=== PATIENT | female | born 1950 | race Caucasian/White ===

== ENCOUNTER 2020-08-07 08:25 | Outpatient (REF) | payer MEDICARE, SELFPAY ==
--- NOTE | 2020-08-08 11:04 | MHC.AU.P13 ---
Adult Audiological Evaluation Date of Visit: 08/07/20 Reason for Appointment: Audiological re-evaluation to monitor the status of Ms. Leo's hearing loss. She denies any significant changes to her hearing or medical history. Previous Hearing Test Results: [facility], 01/23/19- Mild to moderately severe mixed hearing loss in the right ear, normal sloping to moderate sensorineural hearing loss in the left ear. 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 Model: Care [employer] M50-R Serial Number: [id number] Battery Size: Rechargeable Repair Warranty: 06/26/2022 Loss and Damage Warranty: 06/26/2022 Dispensed By: [facility] Date of Fittin04/06/2019 Hearing Instrument History- Left Ear: Communication 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 Model: Care [employer] M50-R Serial Number: [id number] Battery Size: Rechargeable Warranty: 06/26/2022 Loss and Damage Warranty: 06/26/2022 Dispensed By: [facility] Date of Fittin04/06/2019 Otoscopy: Right Ear: Unremarkable Left Ear: Unremarkable Tympanometry: Tympanometry performed due to: History of mixed hearing loss Right Ear: Hypercompliant Middle Ear System (Type Ad) Left Ear: Normal Middle Ear System (Type A) Hearing Evaluation: Transducer(s) Used: Insert Earphones, Bone Conduction Method: Conventional Audiometry Stimuli Used: Pure Tones Right Ear: Description of Hearing: Mild sloping to moderately severe mixed hearing loss from 250-8000 Hz. Left Ear: Description of Hearing: Normal hearing from 250-1000 Hz, sloping to a mild to moderate sensorineural hearing loss from 0340-2236 Hz. Speech Recognition Threshold (SRT): Method Used: Monitored Live Voice Stimuli Used: Spondee Words Right Ear: 45 dBHL Left Ear: 15 dBHL Word Discrimination: Method: Recorded Lists Word Lists Used: NU-6 Right Ear: 96% at 85 dBHL Left Ear: 96% at 55 dBHL Comparison: Compared to the most recent evaluation: Hearing is stable. Recommendations: Audiological re-evaluation in one year. Hearing aid maintenance performed today. Diagnosis: Primary Diagnosis: H90.3 Bilateral Sensorineural Hearing Loss Services Performed: Comprehensive Audiological Evaluation (CPT 26436) Tympanometry (CPT 72761) Signature: Provider: Carly Veliz, REINALDO-A
== END 2020-08-07 08:26 | disposition home or self-care (01) ==
LOC: HO.SH 08:25
PROVIDERS: Visit Provider Internal Medicine
DX: H90.3 Sensorineural hearing loss, bilateral (principal)
CPT/HCPCS: 92557; 92567

== ENCOUNTER 2021-01-22 06:06 | Outpatient (REF) | payer MEDICARE, SELFPAY ==
[2021-01-22 11:10] LABS: MANUAL DIFF FLAG NO
[2021-01-22 11:21] LABS: Basophils Percent Auto 0.7 % (0-2); Eosinophils Absolute Auto 0.1 X10*3/uL (0.0-0.4); Eosinophils Percent Auto 2.1 % (0-4); Hematocrit 42.6 % (37-47); Hemoglobin 14.1 g/dl (12.0-16.0); Imm Gran Abs Auto 0.01 X10*3/uL (0.00-0.03); Imm Gran Pct Auto 0.2 % (0.0-0.4); Lymphocytes Absolute Auto 1.9 X10*3/uL (1.2-4.9); Lymphocytes Percent Auto 34.1 % (20-40); Mean Corpuscular HGB Conc 33.1 g/dl (31.0-35.0); Mean Corpuscular Hemoglobin 30.5 pg (27.0-33.0); Mean Corpuscular Volume 92.2 fL (80-98); Monocytes Absolute Auto 0.8 X10*3/uL (0.1-1.2); Monocytes Percent Auto 13.6 % (2-11); Neutrophils Absolute Auto 2.8 X10*3/uL (2.0-8.3); Neutrophils Percent Auto 49.3 % (45-73); Platelet Count 232 X10*3/uL (160-400); Red Blood Count 4.62 X10*6/uL (4.20-5.50); Red Cell Distribution Width 12.5 % (11.0-16.0); White Blood Count 5.7 X10*3/uL (4.8-10.8)
[2021-01-22 11:47] LABS: Alanine Aminotransferase 12 U/L (0-31); Albumin Level 4.1 g/dL (3.5-5.0); Alkaline Phosphatase 93 U/L (39-117); Anion Gap 12 (12-20); Aspartate Amino Transferase 18 U/L (5-31); Blood Urea Nitrogen 13 mg/dL (9-16); Calcium 9.3 mg/dL (8.4-10.2); Carbon Dioxide 28 mmol/L (22-29); Chloride 101 mmol/L (96-108); Cholesterol 170 mg/dL; Estimated Glomerular Filt Rate > 60; Glucose Fasting 98 mg/dL (60-99); HDL Cholesterol 60 mg/dL; LDL Cholesterol Calculated 90 mg/dl; Potassium 4.6 mmol/L (3.3-5.1); Sodium 136 mmol/L (135-145); Total Protein 7.1 g/dL (6.5-8.0); Triglycerides 100 mg/dL
[2021-01-22 12:12] LABS: Vitamin D 25-OH Total 46.8 ng/mL (>30)
== END 2021-01-22 06:07 | disposition home or self-care (01) ==
LOC: HO.HMGCLDS 06:06
PROVIDERS: PCP Internal Medicine; Visit Provider Internal Medicine
DX: E78.5 Hyperlipidemia, unspecified (principal); H91.90 Unspecified hearing loss, unspecified ear; I10 Essential (primary) hypertension; E55.9 Vitamin D deficiency, unspecified; M81.0 Age-related osteoporosis without current pathological fracture
CPT/HCPCS: 36415; 80053; 80061; 82306; 84443; 85025

== ENCOUNTER 2022-01-02 08:26 | Outpatient (REF) | payer MEDICARE, SELFPAY ==
--- NOTE | ~2022-01-02 | MM_ITS ---
EXAMINATION: BONE DENSITOMETRY CLINICAL INDICATION: Osteoporosis. COMPARISON: This is the patient's baseline examination. TECHNIQUE: Using a [employer] DXA System (software version: 13.1) manufactured by [employer], dual-energy x-ray absorptiometry was performed of the lumbar spine and left hip. The images are of good technical quality. Summary results are attached. FINDINGS: AP SPINE L1-L2 (excluding L3 and L4): The data of L1-L4 has been changed to exclude the L3 and L4 vertebral bodies, because degenerative changes at these levels may cause overestimation of lumbar spine density. BMD 0.983 g/cm2, Z-score 0.1, T-score -1.5, osteopenia. LEFT FEMUR, NECK: BMD 0.713 g/cm2, Z-score -0.5, T-score -2.3, osteopenia. LEFT FEMUR, TOTAL: BMD 0.822 g/cm2, Z-score 0.1, T-score -1.5, osteopenia. IDENTIFIED RISK FACTORS: Menopause, tobacco use (current smoker). HISTORY OF FRACTURE: None listed. MEDICATIONS: Vitamin D. MM/XR DEXA axial skeleton IMPRESSION: 1. DIAGNOSIS: Osteopenia based on the lowest T-score value of -2.3 in the femoral neck applying World Health Organization criteria. 2. 10-YEAR FRACTURE RISK PREDICTION, FRAX: Major osteoporotic fracture (clinical spine, forearm, hip or shoulder) 16.6%. Hip fracture 6.9%. 3. Treatment Recommendations: NOF guidelines recommend consideration for treatment in postmenopausal women and men age 50 and older presenting with the following: -A hip or vertebral (clinical or morphometric) fracture. -T-score less than or equal to -2.5 at the femoral neck or spine after appropriate evaluation to exclude secondary causes. -Low bone mass at the hip or spine and a 10-year fracture probability by FRAX of greater than or equal to 3% for hip fracture or greater than or equal to 20% for major osteoporotic fracture based on the [place] adapted WHO algorithm. 4. Other Recommendations: All treatment decisions require clinical judgment and consideration of individual patient factors, including patient preferences, comorbidities, previous drug use, risk factors not captured in the FRAX model (e.g. frailty, falls, vitamin D deficiency, increased bone turnover, interval significant decline in bone density) and possible under or overestimation of fracture risk by FRAX. Additional medical evaluation for secondary cause of low bone mineral density may be appropriate. FUTURE SCAN RECOMMENDATION: People with diagnosed cases of osteoporosis or at high risk for fracture should have regular bone mineral density tests. For patients eligible for Medicare, routine testing is allowed once every 2 years. The testing frequency can be increased to one year for patients who have rapidly progressing disease, those who are receiving or discontinuing medical therapy to restore bone mass, or have additional risk factors.
== END 2022-01-02 08:27 | disposition home or self-care (01) ==
LOC: HO.MAMMO 08:26
PROVIDERS: Visit Provider Internal Medicine
DX: M81.0 Age-related osteoporosis without current pathological fracture (principal)
CPT/HCPCS: 77080

== ENCOUNTER 2022-08-01 07:04 | Outpatient (REF) | payer OTHER, SELFPAY ==
[2022-08-01 07:21] LABS: MANUAL DIFF FLAG NO
[2022-08-01 08:06] LABS: Basophils Percent Auto 0.6 % (0-2); Eosinophils Absolute Auto 0.1 X10*3/uL (0.0-0.4); Hemoglobin 13.7 g/dl (12.0-16.0); Imm Gran Abs Auto 0.01 X10*3/uL (0.00-0.03); Imm Gran Pct Auto 0.2 % (0.0-0.4); Lymphocytes Absolute Auto 1.7 X10*3/uL (1.2-4.9); Lymphocytes Percent Auto 26.4 % (20-40); Mean Corpuscular HGB Conc 32.6 g/dl (31.0-35.0); Mean Corpuscular Volume 91.9 fL (80.0-98.0); Mean Platelet Volume 10.4 fL (9.4-12.3); Monocytes Absolute Auto 0.7 X10*3/uL (0.1-1.2); Neutrophils Absolute Auto 3.8 x10*3/uL (2.0-8.3); Neutrophils Percent Auto 59.8 % (45-73); Platelet Count 224 X10*3/uL (160-400); Red Blood Count 4.57 X10*6/uL (4.20-5.50); White Blood Count 6.4 X10*3/uL (4.8-10.8)
[2022-08-01 08:26] LABS: Color Urine Yellow; Glucose Urine UA Negative (Negative); Leukocyte Esterase Urine Trace (Negative); Nitrite Urine Negative (Negative); UMIC TRIGGER UA YES; Urine Blood Trace (Negative); Urine Ketones Trace mg/dL (Negative); Urine Protein Negative (Neg-Trace)
[2022-08-01 08:28] LABS: Bacteria Urine None Seen (None Seen); Hyaline Casts Urine 0-2 /LPF (0-2); RBC Urine 0-2 /HPF (0-2); Squamous Epithelial Cell Urine 0-2 /HPF (0-2); WBC Urine 0-5 /HPF (0-5)
[2022-08-01 08:55] LABS: Appearance Urine Clear
[2022-08-01 09:00] LABS: Alanine Aminotransferase 13 U/L (0-31); Alkaline Phosphatase 117 U/L (39-117); Anion Gap 12 (12-20); Aspartate Amino Transferase 16 U/L (5-31); Bilirubin Total 0.9 mg/dL (0.0-1.0); Blood Urea Nitrogen 13 mg/dL (9-16); Calcium 9.3 mg/dL (8.4-10.2); Carbon Dioxide 27 mmol/L (22-29); Chloride 104 mmol/L (96-108); Cholesterol 157 mg/dL; Estimated Glomerular Filt Rate > 60; Glucose Fasting 95 mg/dL (60-99); HDL Cholesterol 53 mg/dL; LDL Cholesterol Calculated 87 mg/dl; Potassium 4.8 mmol/L (3.3-5.1); Sodium 138 mmol/L (135-145); Total Protein 6.9 g/dL (6.5-8.0); Triglycerides 85 mg/dL
[2022-08-01 09:18] LABS: TSH reflex Free T4 1.18 uIU/mL (0.32-4.0)
== END 2022-08-01 07:05 | disposition home or self-care (01) ==
LOC: HO.LAB 07:04
PROVIDERS: PCP Internal Medicine; Visit Provider Internal Medicine
DX: Z00.00 Encounter for general adult medical examination without abnormal findings (principal); I10 Essential (primary) hypertension; E78.5 Hyperlipidemia, unspecified; E55.9 Vitamin D deficiency, unspecified
CPT/HCPCS: 36415; 80053; 80061; 81001; 82306; 84443; 85025

== ENCOUNTER 2022-08-05 07:43 | Emergency (ER) | payer OTHER, SELFPAY ==
--- NOTE | ~2022-08-05 | CT_ITS ---
EXAMINATION: CT ABDOMEN AND PELVIS WITHOUT CONTRAST CLINICAL INFORMATION: Left flank pain COMPARISON: CT dated 02/17/2018 TECHNIQUE: Multidetector volumetric imaging was performed from the superior aspect of the liver through the pubic symphysis. Sagittal and coronal reformatted images were obtained on the technologist's workstation. This CT examination was performed using dose optimization techniques as appropriate, variously including the following: *Automated exposure control *Adjustment of mA and/or kV according to patient size (this includes techniques or standardized protocols for targeted exams where dose is matched to indication/reason for exam; i.e. extremities or head) *Use of iterative reconstruction technique DLP: 558 mGy-cm FINDINGS: LUNG BASES: Mild atelectasis or chronic change at the left lung base LIVER, GALLBLADDER, AND BILIARY TREE: Mild intrahepatic ductal prominence. Status post cholecystectomy PANCREAS: Unremarkable. SPLEEN: Unremarkable. ADRENAL GLANDS: Mild fullness of the left greater than right adrenal glands. Underlying minimal nodularity cannot be excluded on the left. Negative Hounsfield units argues for benign etiology. KIDNEYS AND URETERS: The kidneys are normal in size, shape, and attenuation. No hydronephrosis, hydroureter, or calculi seen. No perinephric stranding. BLADDER: Unremarkable. GASTROINTESTINAL TRACT: Diverticulosis is noted. No evidence for diverticulitis. The bowel pattern is felt to be nonobstructing. No free fluid. The appendix is normal ABDOMINAL WALL: No significant hernia is appreciated. LYMPH NODES: There is no bulky adenopathy here. VASCULAR: Atherosclerotic changes are noted. PELVIC VISCERA: Unremarkable. OSSEOUS STRUCTURES: No acute finding. Some degenerative changes most noted at L3-4 CT/CT abdomen pelvis wo IV con IMPRESSION: No acute finding. No evidence of renal or ureteral stone or obstruction. Diverticulosis but no evidence for diverticulitis. The bowel pattern is felt to be nonobstructing.
[2022-08-05 07:47] VITALS: BP 174/61; PULSE 65; RESP 18; TEMP 36.6; O2SAT 100; BMI 27.4
--- NOTE | 2022-08-05 08:06 | PC.NURSE ---
72 y/o F pw L flank pain and dysuria, pt with hx of kidney stones inthe past, states that this feels similar. SHANTHI, aox3, awaiting MD
[2022-08-05 08:18] LABS: Hematocrit 41.6 % (37.0-47.0); Hemoglobin 13.7 g/dl (12.0-16.0); Mean Corpuscular HGB Conc 32.9 g/dl (31.0-35.0); Platelet Count 207 X10*3/uL (160-400); Red Blood Count 4.57 X10*6/uL (4.20-5.50); White Blood Count 9.3 X10*3/uL (4.8-10.8)
--- NOTE | 2022-08-05 08:22 | ED_ITS ---
HPI - Female Genitourinary General Chief complaint: Urogenital-Female Stated complaint: L flank pain Time Seen by Provider: 08/05/22 08:01 Source: patient and family Mode of arrival: ambulatory History of Present Illness HPI Narrative: 72-year-old female with history of hypertension, last colonoscopy summer presents with left flank/posterior vague pain that is been ongoing for approximately for 5 days, nonradiating, not associated with fever, chills, nausea, vomiting, dysuria. Patient denies any traumatic event and denies any respiratory symptoms such as cough/cold symptoms. Related Data Home Medications Medication Instructions Recorded Confirmed aspirin 81 mg tablet,delayed 81 mg PO DAILY 07/26/20 07/10/22 release cholecalciferol (vitamin D3) 25 25 mcg PO DAILY 07/26/20 07/10/22 mcg (1,000 unit) capsule flu vacc [id number](65yr up)-PF 240 ml IM 07/26/20 07/10/22 mcg/0.7 mL intramuscular syringe latanoprost 0.005 % eye drops 1 drp ophthalmic (eye) BEDTIME 07/26/20 07/10/22 omeprazole 20 mg capsule,delayed 20 mg PO DAILY 07/26/20 07/10/22 release timolol maleate 0.5 % eye drops 1 drp ophthalmic (eye) BID 07/26/20 07/10/22 Previous Rx's Medication Instructions Recorded erythromycin 5 mg/gram (0.5 %) eye 0.5 inch ophthalmic (eye) BID #1 g 06/20/21 ointment amlodipine 2.5 mg tablet 2.5 mg PO DAILY #90 tabs 02/09/22 rosuvastatin 5 mg tablet 2.5 mg PO DAILY #45 tabs 02/20/22 Allergies Allergy/AdvReac Type Severity Reaction Status Date / Time No Known Allergies Allergy Verified 07/10/22 08:54 [No Known Allergies*] Review of Systems Review of Systems: Pertinent positives and negatives as stated in HPI [facility] Past Medical History Source: nursing notes reviewed Medical History Annual physical exam GERD (gastroesophageal reflux disease) Glaucoma Hearing loss HTN (hypertension) Hyperlipidemia Hyperthyroidism Nephrolithiasis Osteoporosis SVT (supraventricular tachycardia) Vitamin D deficiency Surgical History H/O colonoscopy History of appendectomy Hx of cholecystectomy Family History Family History Father No problems noted. Mother No problems noted. Social History Social History Housing: House Alcohol intake: current Alcohol intake frequency: holidays/special occasions only Patient Tobacco Use Status: Current everyday Tobacco user Cigarettes Per Day: 3 e-Cigarette/Vaping Use: Never Used Advance Directives: Yes Advance Directives on File: No Current occupational status: employed Cognitive needs: No Hearing needs: Yes Vision needs: Yes Physical Exam Vital Signs: Vital Signs: Last Vital Signs Temp 97.8 F 08/05/22 07:47 Pulse 65 08/05/22 07:47 Resp 18 08/05/22 07:47 BP 174/61 H 08/05/22 07:47 Pulse Ox 100 08/05/22 07:47 O2 Del Method 08/05/22 07:47 BMI result Body Mass Index 27.4 VITAL SIGNS: Reviewed. GENERAL: Well developed, well nourished, in no acute distress. HEAD: Normocephalic/atraumatic EYES: PERRLA, EOMI LUNGS: Normal breath sounds. No adventitious sounds or accessory muscle use. SpO2<100> CARDIOVASCULAR: Regular rate and rhythm without noted murmurs ABDOMEN: Soft, non-tender, non-distended with bowel sounds, no CVA tenderness MUSCULOSKELETAL: No tenderness, deformities, or effusions noted on gross inspection. BACK: There is no obvious pain on palpation to the left paraspinal lumbar area EXTREMITIES: No cyanosis, clubbing or edema. SKIN: Inspection of the skin reveals no rashes NEUROLOGIC: Alert and oriented x 3. Strength and sensation to light touch were grossly intact x 4. Medications Administered Discontinued Medications Generic Name Dose Route Start Last Admin Trade Name Freq PRN Reason Stop Dose Admin Acetaminophen 975 mg 08/05/22 08:22 08/05/22 08:40 Acetaminophen 325 Mg Tablet PO 08/05/22 08:23 975 mg ONCE ONE Administration Ibuprofen 400 mg 08/05/22 08:22 08/05/22 08:40 Ibuprofen 400 Mg Tablet PO 08/05/22 08: 400 mg ONCE ONE Administration Lidocaine 1 patch 08/05/22 08:22 08/05/22 08:40 Lidocaine 4 % Patch Adh..Patch TRANSDERMA 08/05/22 08:23 1 patch ONCE ONE Administration Protocol Medical Decision Making Medical Decision Making MDM Narrative: 72-year-old female with left flank/musculoskeletal discomfort. Labs/UA/CT abdomen pelvis. On review of all investigations my interpretation is that patient has musculoskeletal/muscle spasm to the left posterior flank, there is no findings to suggest acute infection, anemia there was noted hematuria on urinalysis but CT scan is without acute findings. All results were discussed with patient at bedside and she did receive combination analgesics with a lidocaine patch and on re-evaluation states she has had improvement of her symptoms. Differential Diagnosis Differential Diagnoses: The differential diagnosis associated with the presentation includes Please see the discussion above Lab Data MDM Lab Attestation statement: I reviewed the patient's lab results. Please see discussion above. 08/05/22 08:10 08/05/22 08:10 Labs: Lab Results 08/05/22 08/05/22 08/05/22 Range/Units 08:10 08:10 08:43 WBC 9.3 (4.8-10.8) X10*3/uL RBC 4.57 (4.20-5.50) X10*6/uL Hgb 13.7 (12.0-16.0) g/dl Hct 41.6 (37.0-47.0) % MCV 91.0 (80.0-98.0) fL MCH 30.0 (27.0-33.0) pg MCHC 32.9 (31.0-35.0) g/dl RDW 13.0 (11.0-16.0) % Plt Count 207 (160-400) X10*3/uL MPV 10.0 (9.4-12.3) fL Absolute Nucleated RBC 0.000 (0.0-0.012) X10*3/uL Nucleated RBC % (auto) 0.0 (0.0-0.2) /100WBC Sodium 139 (135-145) mmol/L Potassium 5.6 H (3.3-5.1) mmol/L Chloride 104 (96-108) mmol/L Carbon Dioxide 26 (22-29) mmol/L Anion Gap 15 (12-20) BUN 15 (9-16) mg/dL Creatinine 0.85 (0.5-1.4) mg/dL Estim Creat Clear Calc 52.4 Estimated GFR > 60 Random Glucose 114 (60-115) mg/dL Calcium 9.5 (8.4-10.2) mg/dL Urine Color Yellow Urine Appearance Clear Urine pH 6.0 (5.0-9.0) Ur Specific [place] 1.010 (1.005-1.025) Urine Protein Negative (Neg-Trace) mg/dL Urine Glucose (UA) Negative (Negative) mg/dL Urine Ketones Negative (Negative) mg/dL Urine Blood Trace H (Negative) Urine Nitrite Negative (Negative) Ur Leukocyte Esterase Negative (Negative) Urine RBC 3-5 H (0-2) /HPF Urine WBC 0-5 (0-5) /HPF Ur Squamous Epith Cells 0-2 (0-2) /HPF Urine Bacteria None Seen (None Seen) Hyaline Casts 0-2 (0-2) /LPF Radiology Impression Radiologist Impression: My interpretation is in agreement with radiology's impression of the imaging study. Chronic Conditions Patient?s care impacted by: Hypertension Discharge Plan Discharge Clinical Impression: HTN (hypertension), Left flank pain Patient Disposition: Home, Self-Care Instructions: Flank Pain (ED), Musculoskeletal Pain (ED), Muscle Spasm (ED) Additional Instructions: 1. Resume all home medications as prescribed. 2. Tylenol 1000 mg, orally, every 6 hours as needed for pain control. Do not exceed 4000 mg within 24 hours. 3. Ibuprofen 400 mg, orally with milk or food, every 6 hours as needed for pain control. I would only use this if the Tylenol and lidocaine patch do not provi de sufficient relief. 4. Recommend [id number] Salonpas, lidocaine patch apply to the area of m aximal tenderness as directed on the outside packaging. 5. Always follow-up with your primary care provider, in the next 1-2 days, for re-evaluation further outpatient management. Return to the ER for any worsening or change in your symptoms. Prescriptions: No Action amlodipine 2.5 mg tablet 2.5 mg PO DAILY Qty: 90 3RF rosuvastatin 5 mg tablet 2.5 mg PO DAILY Qty: 45 3RF latanoprost 0.005 % drops 1 drp ophthalmic (eye) BEDTIME timolol maleate 0.5 % drops 1 drp ophthalmic (eye) BID Fluzone HighDose Quad 20-21 PF 240 mcg/0.7 mL syringe IM aspirin 81 mg tablet,delayed release (DR/EC) 81 mg PO DAILY cholecalciferol (vitamin D3) 25 mcg (1,000 unit) capsule 25 mcg PO DAILY omeprazole 20 mg capsule,delayed release(DR/EC) 20 mg PO DAILY erythromycin 5 mg/gram (0.5 %) ointment 0.5 inch ophthalmic (eye) BID Qty: 1 0RF Referrals: Pastora Sargent MD [Primary Care Provider] - (Patient evaluated for left flank pain, workup was negative, there was a noted elevation of potassium without alternate complaints, would repeat a basic metabolic panel.)
[2022-08-05 08:31] LABS: Anion Gap 15 (12-20); Blood Urea Nitrogen 15 mg/dL (9-16); Calcium 9.5 mg/dL (8.4-10.2); Carbon Dioxide 26 mmol/L (22-29); Chloride 104 mmol/L (96-108); Creatinine Clr Calc Pharmacy 52.4; Estimated Glomerular Filt Rate > 60; Glucose Random 114 mg/dL (60-115); Potassium 5.6 mmol/L (3.3-5.1); Sodium 139 mmol/L (135-145)
[2022-08-05] MEDS: Lidocaine 4 % Patch ADH..PATCH 1 PATCH TRANSDERMA (08:40)
[2022-08-05] MEDS: Acetaminophen 325 MG TABLET 975 MG PO (08:40)
[2022-08-05] MEDS: Ibuprofen 400 MG TABLET PO (08:40)
[2022-08-05 08:52] LABS: Appearance Urine Clear; Color Urine Yellow; Glucose Urine UA Negative (Negative); Leukocyte Esterase Urine Negative (Negative); Nitrite Urine Negative (Negative); UMIC TRIGGER UACC YES; Urine Blood Trace (Negative); Urine Ketones Negative (Negative); Urine Protein Negative (Neg-Trace)
[2022-08-05 08:57] LABS: Bacteria Urine None Seen (None Seen); Hyaline Casts Urine 0-2 /LPF (0-2); Squamous Epithelial Cell Urine 0-2 /HPF (0-2); WBC Urine 0-5 /HPF (0-5)
== END 2022-08-05 12:14 | disposition home or self-care (01) ==
PROVIDERS: Emergency Provider Student in an Organized Health Care Education/Training Program; PCP Internal Medicine
DX: R10.9 Unspecified abdominal pain (principal); I10 Essential (primary) hypertension; F17.210 Nicotine dependence, cigarettes, uncomplicated; Z79.899 Other long term (current) drug therapy; Z71.6 Tobacco abuse counseling
CPT/HCPCS: 36415; 74176; 80048; 81001; 85027; 99284

== ENCOUNTER 2022-09-01 08:15 | Emergency (ER) | payer OTHER, SELFPAY ==
[2022-09-01] VITALS (8 sets, daily range): BP systolic 100–121; BP diastolic 51–82; PULSE 70–90; RESP 14–26; TEMP 36.3–36.9; O2SAT 94–97; BMI 28.5
--- NOTE | ~2022-09-01 | CT_ITS ---
EXAMINATION: CT ANGIOGRAM OF THE CHEST WITH CONTRAST (CT PULMONARY ANGIOGRAM FOR PE) CLINICAL INFORMATION: Chest pain, SOB, COVID+ , evaluate for pulmonary embolism. COMPARISON: Chest radiograph from 09/01/2022. Abdomen CT from 08/05/2022. TECHNIQUE: Prior to contrast administration, noncontrast localization images were obtained. Subsequently, multidetector volumetric imaging was performed from the thoracic inlet to below the diaphragms following the administration of 65 mL Omnipaque 350 intravenous contrast. No contrast reaction reported. Sagittal, coronal, and MIP oblique sagittal reformatted images were obtained on the CT workstation, uploaded to PACS, and reviewed. This CT examination was performed using dose optimization techniques as appropriate, variously including the following: *Automated exposure control *Adjustment of mA and/or kV according to patient size (this includes techniques or standardized protocols for targeted exams where dose is matched to indication/reason for exam; i.e. extremities or head) *Use of iterative reconstruction technique DLP: Total exam dose-length product 269 mGy-cm FINDINGS: LUNGS AND PLEURA: The bronchial davis are diffusely thickened. Also, there is smooth thickening of interlobular septa in both lungs with small pleural effusions and mild bibasilar atelectasis. Small patchy groundglass and airspace opacities in the right upper lobe are nonspecific but probably represent edema rather than pneumonitis. Also, a small airspace opacity in the lateral right lower lobe is new compared to 08/05/2022 (image 336, series 7). QUALITY OF STUDY/CONTRAST BOLUS: Satisfactory. CARDIOVASCULAR: The pulmonary arteries are normal in size. No embolic filling defects within the main, lobar or segmental vessels. Mitral valve annulus is densely calcified. Mild cardiomegaly. Three-vessel coronary artery atherosclerotic calcification. No pericardial effusion. Thoracic aorta atherosclerosis without aneurysm. MEDIASTINUM/LOWER NECK: Thyroid gland and esophagus are unremarkable. No mediastinal mass. LYMPHATICS: No pathologic sized axillary, hilar or mediastinal lymph nodes. UPPER ABDOMEN: Mild reflux of contrast into the inferior vena cava. Gallbladder is surgically absent. Adrenal glands are unremarkable. Diverticula of the partially visualized colon. OSSEOUS STRUCTURES: Bone density is diffusely decreased in this patient with history of osteopenia. No acute compression fractures. Multilevel discovertebral degenerative change of the visualized lower cervical and thoracic spine. CT/CT angio chest PE protocol IMPRESSION: * No evidence of pulmonary embolism. * Mild cardiomegaly, atherosclerotic disease of coronary arteries, pulmonary edema and small pleural effusions. * A few patchy groundglass and airspace opacities are present in the right lung. These are likely related to the pulmonary edema although unable to exclude any superimposed pneumonia.
--- NOTE | ~2022-09-01 | XR_ITS ---
EXAMINATION: XR CHEST CLINICAL INFORMATION: History of pain. COMPARISON: Abdomen CT from 08/05/2022. DEXA imaging from 01/02/2022. TECHNIQUE: Frontal view of the chest was obtained. FINDINGS: Lungs are well expanded. The bronchial davis appear to be diffusely thickened. Linear opacity of mild atelectasis or focal scar in the retrocardiac region of the left lower lobe. No overt airspace disease or pleural effusion. No pneumothorax. Cardiac silhouette is mildly enlarged and mitral valve annulus calcified. There is atherosclerotic calcification of the aorta. The visualized bones are intact. Multiple EKG leads overlie the chest. XR/XR chest 1V IMPRESSION: * Mild cardiomegaly. No evidence of acute congestive heart failure. * The bronchial davis appear to be diffusely thickened. This could represent chronic airway inflammation from cigarette smoking/bronchitis.
--- NOTE | 2022-09-01 08:32 | ECG_ITS ---
Test Reason : chest pain Blood Pressure : / mmHG Vent. Rate : 081 BPM Atrial Rate : 081 BPM P-R Int : 222 ms QRS Dur : 092 ms QT Int : 436 ms P-R-T Axes : 069 -44 090 degrees QTc Int : 506 ms Sinus rhythm with 1st degree A-V block Left axis deviation Incomplete right bundle branch block Septal infarct , age undetermined ST & T wave abnormality, consider lateral ischemia Abnormal ECG No previous ECGs available Referred By: Nathan Watts Electronically Signed By:TOI POST MD
[2022-09-01 08:54] LABS: MANUAL DIFF FLAG NO
[2022-09-01 08:55] LABS: Basophils Percent Auto 0.3 % (0-2); Eosinophils Absolute Auto 0.1 X10*3/uL (0.0-0.4); Eosinophils Percent Auto 0.5 % (0-4); Hematocrit 40.1 % (37.0-47.0); Hemoglobin 13.5 g/dl (12.0-16.0); Imm Gran Abs Auto 0.03 X10*3/uL (0.00-0.03); Imm Gran Pct Auto 0.3 % (0.0-0.4); Lymphocytes Absolute Auto 1.6 X10*3/uL (1.2-4.9); Lymphocytes Percent Auto 16.4 % (20-40); Mean Corpuscular HGB Conc 33.7 g/dl (31.0-35.0); Mean Corpuscular Hemoglobin 29.5 pg (27.0-33.0); Mean Corpuscular Volume 87.7 fL (80.0-98.0); Mean Platelet Volume 9.8 fL (9.4-12.3); Monocytes Absolute Auto 0.9 X10*3/uL (0.1-1.2); Monocytes Percent Auto 9.8 % (2-11); Neutrophils Absolute Auto 6.9 x10*3/uL (2.0-8.3); Neutrophils Percent Auto 72.7 % (45-73); Platelet Count 260 X10*3/uL (160-400); Red Blood Count 4.57 X10*6/uL (4.20-5.50); Red Cell Distribution Width 13.2 % (11.0-16.0); White Blood Count 9.5 X10*3/uL (4.8-10.8)
[2022-09-01 09:05] LABS: Prothrombin Time 11.7 SEC (10.0-13.1)
[2022-09-01 09:08] LABS: Partial Thromboplastin Time 27.9 SEC (26.0-36.4)
[2022-09-01 09:09] LABS: COVID-19 Test Positive (Negative); IDNOW Serial# 16C4AD1C
[2022-09-01 09:13] LABS: Alanine Aminotransferase 20 U/L (0-31); Albumin Level 3.8 g/dL (3.5-5.0); Alkaline Phosphatase 110 U/L (39-117); Anion Gap 15 (12-20); Aspartate Amino Transferase 116 U/L (5-31); Bilirubin Total 0.8 mg/dL (0.0-1.0); Blood Urea Nitrogen 22 mg/dL (9-16); Calcium 8.9 mg/dL (8.4-10.2); Carbon Dioxide 22 mmol/L (22-29); Chloride 102 mmol/L (96-108); Creatinine Clr Calc Pharmacy 58.3; Estimated Glomerular Filt Rate > 60; Glucose Random 119 mg/dL (60-115); Lipase 19 U/L (8-78); Potassium 4.4 mmol/L (3.3-5.1); Sodium 135 mmol/L (135-145); Total Protein 6.8 g/dL (6.5-8.0)
[2022-09-01 09:14] LABS: IDNOW Serial# BCCEAD1C; Influenza A Negative (Negative); Influenza B2 Negative (Negative)
[2022-09-01 09:18] LABS: B Type Natriuretic Peptide 1309 pg/mL (<100)
[2022-09-01] MEDS: ondansetron HCL 4 MG/2 ML VIAL IVPUSH (09:29)
[2022-09-01] MEDS: Morphine Sulfate 4 MG/ML CARTRIDGE IVPUSH (09:29)
[2022-09-01 09:37] LABS: Troponin-I High Sensitivity > 3600.0 ng/L (<3.5-17.0)
--- NOTE | 2022-09-01 09:40 | ED.CHESTPAIN ---
HPI - Chest Pain General Chief Complaint: Chest Pain Stated Complaint: CHEST HEAVY, HARD TIME WITH DEEP BREATHING PER EMS Time Seen by Provider: 09/01/22 08:23 Source: patient Mode of arrival: EMS Limitations: no limitations History of Present Illness HPI narrative: 72-year-old female who presents to the emergency department for evaluation of chest pain, back pain and shortness of breath. The patient states she was diagnosed with COVID-19 approximately 12 days prior. She states she is feeling significantly better but still has a nonproductive cough. The patient states that she has a long flight of stairs that she has to walk up. She states that over the last month when she gets the top of the stairs she feels winded and has chest pain which she describes as a pressure/heaviness in her chest and back. She states that the pain usually resolves after 10 minutes of rest. She states that last night at 22:00 hours she walked to the top of the stairs and developed the pain in her chest and back. States the pain was more severe than usual and was 7/10. The pain was constant and persisted therefore this morning she called an ambulance and was brought to the emergency department for evaluation. At the time of evaluation she was complaining of a heaviness in her chest/breasts and in her back. The pain was 4/10. She states she did get diaphoretic earlier this morning. She states the pain does radiate to her right arm and back as well. She denied nausea, vomiting, lightheadedness or dizziness. She was given 324 mg of aspirin to chew by the paramedics. The patient denied fever, chills, rhinorrhea, sore throat. She states she has a persistent cough since being diagnosed with COVID-19 12 days prior, she denied abdominal pain, frequency, urgency or dysuria. Related Data Home Medications Medication Instructions Recorded Confirmed aspirin 81 mg tablet,delayed 81 mg PO DAILY 07/26/20 07/10/22 release cholecalciferol (vitamin D3) 25 25 mcg PO DAILY 07/26/20 07/10/22 mcg (1,000 unit) capsule flu vacc [id number](65yr up)-PF 240 ml IM 07/26/20 07/10/22 mcg/0.7 mL intramuscular syringe latanoprost 0.005 % eye drops 1 drp ophthalmic (eye) BEDTIME 07/26/20 07/10/22 omeprazole 20 mg capsule,delayed 20 mg PO DAILY 07/26/20 07/10/22 release timolol maleate 0.5 % eye drops 1 drp ophthalmic (eye) BID 07/26/20 07/10/22 Previous Rx's Medication Instructions Recorded erythromycin 5 mg/gram (0.5 %) eye 0.5 inch ophthalmic (eye) BID #1 g 06/20/21 ointment amlodipine 2.5 mg tablet 2.5 mg PO DAILY #90 tabs 02/09/22 rosuvastatin 5 mg tablet 2.5 mg PO DAILY #45 tabs 02/20/22 Allergies Allergy/AdvReac Type Severity Reaction Status Date / Time No Known Allergies Allergy Verified 07/10/22 08:54 [No Known Allergies*] Review of Systems Review of Systems: Yes all other systems are reviewed and are negative [facility] Past Medical History [facility] Narrative: Social history: The patient is a sister of [employer] in lives in a convent. She does smoke 5 cigarettes per day times 40 years. She occasionally drinks alcohol. She denies drug use. Medical History Annual physical exam GERD (gastroesophageal reflux disease) Glaucoma Hearing loss HTN (hypertension) Hyperlipidemia Hyperthyroidism Nephrolithiasis Osteoporosis SVT (supraventricular tachycardia) Vitamin D deficiency Surgical History H/O colonoscopy History of appendectomy Hx of cholecystectomy Family History Family History Father No problems noted. Mother No problems noted. Social History Social History Housing: House Alcohol intake: current Alcohol intake frequency: a few times a month Patient Tobacco Use Status: Current everyday Tobacco user Cigarettes Per Day: 3 Smoked in Last 30 Days: Yes e-Cigarette/Vaping Use: Never Used Use of substances other than those prescribed or required for medical reasons: No Advance Directives: Yes Advance Directives Information Provided: Yes Advance Directives on File: No Current occupational status: employed Cognitive needs: No Hearing needs: Yes Vision needs: Yes Physical Exam Vital Signs: Vital Signs: Last Vital Signs Temp 98.5 F 09/01/22 08:25 Pulse 72 09/01/22 12:38 Resp 14 09/01/22 12:38 BP 105/52 L 09/01/22 12:38 Pulse Ox 96 09/01/22 12:38 O2 Del Method 09/01/22 12:38 O2 Flow Rate 2 09/01/22 12:38 BMI result Body Mass Index 28.5 Const: General: cooperative and no acute distress Orientation/consciousness: oriented to person and oriented to place Limitations: no limitations HEENT: Head: Yes normal to inspection, Yes normocephalic and Yes atraumatic Ears: external ears normal General nose exam: Normal external nose present Face and sinus: Yes normal facial exam Mouth: Normal oral and palatal mucosa present Throat: Yes posterior oropharynx normal Eyes: General: appearance normal, both eyes and all related structures Pupils: Equal, round and reactive pupils present Neck: Neck: Yes normal visual inspection, Yes no lymphadenopathy, Yes trachea midline and Yes supple Chest: Chest palpation & inspection: normal inspection of the chest and normal palpation of entire chest wall Resp: Effort & Inspection: normal respiratory effort and able to speak in complete sentences Auscultation: clear to auscultation bilaterally Cardio: Rate: regular rate Rhythm: regular rhythm Heart sounds: S1 normal heart sound present, S2 normal heart sound present and no murmurs GI: Inspection: Yes normal to inspection Palpation (GI): Soft to palpation, nontender and no guarding Auscultation: normal bowel sounds : General: Yes no CVA tenderness Back/Spine/Pelvis: Back: no CVA tenderness Skin: General skin exam: no rashes or lesions noted Neuro: General: oriented to person and oriented to place Cranial nerves: Yes CN's II-XII intact bilaterally and Yes Equal, round and reactive pupils present Cognition (Neuro): normal cognition Motor exam (neuro): 5/5 motor strength present throughout Extrem: General: Yes normal to inspection Psych: Appearance: grossly normal Speech and movement: Normal speech and movement present Affect: normal affect Attitude: cooperative Medications Administered Generic Name Dose Route Start Last Admin Trade Name Freq PRN Reason Stop Dose Admin Nitroglycerin/Dextrose 100 mg in 250 mls @ 0 mls/hr 09/01/22 10:30 09/01/22 11:18 Nitroglycerin/D5w IVCONT 20 mcg/min .Q0M ANTONIA 3 mls/hr Titration Protocol Per Protocol Heparin Sodium/Sodium Chloride 25,000 unit in 250 mls @ 0 mls/hr 09/01/22 10:30 09/01/22 11:26 Heparin Sodium,Porcine/1/2ns IVCONT 12 units/kg/hr .Q0M ANTONIA 8.51 mls/hr Administration Protocol Per Protocol Discontinued Medications Generic Name Dose Route Start Last Admin Trade Name Roseann PRN Reason Stop Dose Admin Atorvastatin Calcium 80 mg 09/01/22 11:13 09/01/22 11:20 Atorvastatin Calcium 10 Mg Tablet PO 09/01/22 11:14 80 mg ONCE ONE Administration Heparin Sodium (Porcine) 4,000 unit 09/01/22 10:19 09/01/22 11:20 Heparin Sodium,Porcine 5,000 Unit/Ml Vial IVPUSH 09/01/22 10:20 4,000 unit ONCE ONE Administration Iohexol 65 ml 09/01/22 10:31 09/01/22 10:32 Iohexol 350 Mg/Ml 100 Ml Infus..Btl IV 09/01/22 10:32 65 ml ONCE ONE Administration Morphine Sulfate 4 mg 09/01/22 09:00 09/01/22 09:29 Morphine Sulfate 4 Mg/Ml Cartridge IVPUSH 09/01/22 09:01 4 mg ONCE STA Administration Protocol Ondansetron HCl 4 mg 09/01/22 09:00 09/01/22 09:29 Ondansetron Hcl 4 Mg/2 Ml Vial IVPUSH 09/01/22 09:01 4 mg ONCE ONE Administration Medical Decision Making Medical Decision Making MDM Narrative: 72-year-old female history of hypertension, hyperlipidemia, chronic tobacco use, COVID-19 positive 12 days prior who presents emergency department for evaluation chest radiating to her back and right arm after walking up a flight of stairs last night at 22:00 hours. The pain is been constant but waxing and waning in intensity. She has felt short of breath as well. Patient was brought to emergency department by ambulance and did receive aspirin 324 mg orally. Vital signs revealed a blood pressure of 115/65, pulse 87, respiratory 19, O2 saturation 97% on room air with a temperature of 98.5 degrees F orally. Her physical examination was unremarkable. I ordered a CBC, CMP, lipase, PT/INR, PTT, BNP, high sensitivity troponin I, COVID-19, influenza, EKG and chest x-ray. Patient was ordered to get morphine 4 mg IV and Zofran 4 mg IV. 0959: My independent interpretation patient's laboratory evaluation is as follows: CBC was normal. PT/INR, PTT normal. Glucose elevated 119. High sensitive troponin I was greater than 3,600 which is markedly elevated. BNP was elevated 1309. COVID-19 is positive however the patient, but she was 1st test positive 12 days prior pain. The patient states she has been fully vaccinated and has received a booster shot and the 5 [place] booster shot therefore I believe that she is probably no longer symptomatic or contagious. Influenza was negative. Chest x-ray one view on my reading revealed increased interstitial markings with no focal consolidations. Radiology felt the patient had mild cardiomegaly, no CHF, bronchial wall thickening which could be consistent with chronic airway inflammation from cigarette smoking/bronchitis. The patient's 12 EKG did reveal ischemic changes in leads 1, aVL, V4 through V6 with Q-waves in V1 and V2. I suspect that the patient had a non STEMI which started approximately 12 hours prior. Given the recent COVID-19 infection however I do want to rule the patient out for PE, I think aortic dissection is less likely. I will discuss the patient's presentation with the covering trade union official. 1016: I did discuss patient's presentation with the covering trade union official and he was concerned that the patient's symptoms are consistent with an NSTEMI and that she does have ischemic changes on her EKG. He recommended starting her on a nitro drip at 10 mcg per minute and heparin. He also recommended transfer to [facility] for further evaluation and cardiac catheterization. 1108: CT pulmonary angiogram PE protocol revealed no pulmonary embolism no aortic dissection patient does have patchy ground-glass opacifications in the right lung which could be secondary to the patient's COVID infection versus CHF. I did discuss the patient's presentation with the cardiology attending at [facility], Dr. Vidal and he except the patient as an ED to PCU transfer. He requested that we repeat the patient's EKG. At this time there is not a bed available however [facility] will contact us when a bed is obtained. 1302: The patient is currently pain-free, she is on the nitroglycerin drip states she is having a mild headache but does not want Tylenol. Repeat EKG done and 1134 is similar to the [place] [address] segment depression in leads 1, 2, V4 V5 and V6 Differential Diagnosis Differential diagnosis includes was not limited to STEMI, NSTEMI, aortic dissection, pulmonary embolism, musculoskeletal pain, pneumonia Consult Healthcare Provider Management of the patient was discussed with: Aircraft Sales Representative (Equipment Operat[employer]R Dr. Falcon) Lab Data [facility] Lab Attestation statement: I reviewed the patient's lab results. See [facility] for discussion 09/01/22 08:49 09/01/22 08:49 Labs: Lab Results 09/01/22 09/01/22 09/01/22 Range/Units 08:49 08:49 08:49 WBC 9.5 (4.8-10.8) X10*3/uL RBC 4.57 (4.20-5.50) X10*6/uL Hgb 13.5 (12.0-16.0) g/dl Hct 40.1 (37.0-47.0) % MCV 87.7 (80.0-98.0) fL MCH 29.5 (27.0-33.0) pg MCHC 33.7 (31.0-35.0) g/dl RDW 13.2 (11.0-16.0) % Plt Count 260 D (160-400) X10*3/uL MPV 9.8 (9.4-12.3) fL Immature Gran % (Auto) 0.3 (0.0-0.4) % Neut % (Auto) 72.7 (45-73) % Lymph % (Auto) 16.4 L (20-40) % [place] % (Auto) 9.8 (2-11) % Eos % (Auto) 0.5 (0-4) % Baso % (Auto) 0.3 (0-2) % Lymph # (Auto) 1.6 (1.2-4.9) X10*3/uL [place] # (Auto) 0.9 (0.1-1.2) X10*3/uL Eos # (Auto) 0.1 (0.0-0.4) X10*3/uL Baso # (Auto) 0.0 (0.0-0.2) X10*3/uL Abs Immat Gran (auto) 0.03 (0.00-0.03) X10*3/uL Absolute Neuts (auto) 6.9 (2.0-8.3) x10*3/uL Absolute Nucleated RBC 0.000 (0.0-0.012) X10*3/uL Nucleated RBC % (auto) 0.0 (0.0-0.2) /100WBC PT 11.7 (10.0-13.1) SEC INR 1.0 (0.9-1.1) APTT 27.9 (26.0-36.4) SEC Sodium 135 (135-145) mmol/L Potassium 4.4 D (3.3-5.1) mmol/L Chloride 102 (96-108) mmol/L Carbon Dioxide 22 (22-29) mmol/L Anion Gap 15 (12-20) BUN 22 H (9-16) mg/dL Creatinine 0.78 (0.5-1.4) mg/dL Estim Creat Clear Calc 58.3 Estimated GFR > 60 Random Glucose 119 H (60-115) mg/dL Calcium 8.9 D (8.4-10.2) mg/dL Total Bilirubin 0.8 (0.0-1.0) mg/dL AST 116 H (5-31) U/L ALT 20 (0-31) U/L Alkaline Phosphatase 110 (39-117) U/L Troponin I High Sens (<3.5-17.0) ng/L B-Natriuretic Peptide (<100) pg/mL Total Protein 6.8 (6.5-8.0) g/dL Albumin 3.8 (3.5-5.0) g/dL Lipase 19 (8-78) U/L COVID-19 (TANESHA) (Negative) COVID-19 Clin Com Influenza Type A (KP) (Negative) Influenza Type B (KP) (Negative) Influenza A & B Note 09/01/22 09/01/22 09/01/22 Range/Units 08:49 08:49 08:49 WBC (4.8-10.8) X10*3/uL RBC (4.20-5.50) X10*6/uL Hgb (12.0-16.0) g/dl Hct (37.0-47.0) % MCV (80.0-98.0) fL MCH (27.0-33.0) pg MCHC (31.0-35.0) g/dl RDW (11.0-16.0) % Plt Count (160-400) X10*3/uL MPV (9.4-12.3) fL Immature Gran % (Auto) (0.0-0.4) % Neut % (Auto) (45-73) % Lymph % (Auto) (20-40) % [place] % (Auto) (2-11) % Eos % (Auto) (0-4) % Baso % (Auto) (0-2) % Lymph # (Auto) (1.2-4.9) X10*3/uL [place] # (Auto) (0.1-1.2) X10*3/uL Eos # (Auto) (0.0-0.4) X10*3/uL Baso # (Auto) (0.0-0.2) X10*3/uL Abs Immat Gran (auto) (0.00-0.03) X10*3/uL Absolute Neuts (auto) (2.0-8.3) x10*3/uL Absolute Nucleated RBC (0.0-0.012) X10*3/uL Nucleated RBC % (auto) (0.0-0.2) /100WBC PT (10.0-13.1) SEC INR (0.9-1.1) APTT (26.0-36.4) SEC Sodium (135-145) mmol/L Potassium (3.3-5.1) mmol/L Chloride (96-108) mmol/L Carbon Dioxide (22-29) mmol/L Anion Gap (12-20) BUN (9-16) mg/dL Creatinine (0.5-1.4) mg/dL Estim Creat Clear Calc Estimated GFR Random Glucose (60-115) mg/dL Calcium (8.4-10.2) mg/dL Total Bilirubin (0.0-1.0) mg/dL AST (5-31) U/L ALT (0-31) U/L Alkaline Phosphatase (39-117) U/L Troponin I High Sens > 3600.0 H* (<3.5-17.0) ng/L B-Natriuretic Peptide 1309 H (<100) pg/mL Total Protein (6.5-8.0) g/dL Albumin (3.5-5.0) g/dL Lipase (8-78) U/L COVID-19 (TANESHA) (Negative) COVID-19 Clin Com Influenza Type A (KP) Negative (Negative) Influenza Type B (KP) Negative (Negative) Influenza A & B Note See Note 09/01/22 Range/Units 08:49 WBC (4.8-10.8) X10*3/uL RBC (4.20-5.50) X10*6/uL Hgb (12.0-16.0) g/dl Hct (37.0-47.0) % MCV (80.0-98.0) fL MCH (27.0-33.0) pg MCHC (31.0-35.0) g/dl RDW (11.0-16.0) % Plt Count (160-400) X10*3/uL MPV (9.4-12.3) fL Immature Gran % (Auto) (0.0-0.4) % Neut % (Auto) (45-73) % Lymph % (Auto) (20-40) % [place] % (Auto) (2-11) % Eos % (Auto) (0-4) % Baso % (Auto) (0-2) % Lymph # (Auto) (1.2-4.9) X10*3/uL [place] # (Auto) (0.1-1.2) X10*3/uL Eos # (Auto) (0.0-0.4) X10*3/uL Baso # (Auto) (0.0-0.2) X10*3/uL Abs Immat Gran (auto) (0.00-0.03) X10*3/uL Absolute Neuts (auto) (2.0-8.3) x10*3/uL Absolute Nucleated RBC (0.0-0.012) X10*3/uL Nucleated RBC % (auto) (0.0-0.2) /100WBC PT (10.0-13.1) SEC INR (0.9-1.1) APTT (26.0-36.4) SEC Sodium (135-145) mmol/L Potassium (3.3-5.1) mmol/L Chloride (96-108) mmol/L Carbon Dioxide (22-29) mmol/L Anion Gap (12-20) BUN (9-16) mg/dL Creatinine (0.5-1.4) mg/dL Estim Creat Clear Calc Estimated GFR Random Glucose (60-115) mg/dL Calcium (8.4-10.2) mg/dL Total Bilirubin (0.0-1.0) mg/dL AST (5-31) U/L ALT (0-31) U/L Alkaline Phosphatase (39-117) U/L Troponin I High Sens (<3.5-17.0) ng/L B-Natriuretic Peptide (<100) pg/mL Total Protein (6.5-8.0) g/dL Albumin (3.5-5.0) g/dL Lipase (8-78) U/L COVID-19 (TANESHA) Positive A (Negative) COVID-19 Clin Com See Note Influenza Type A (KP) (Negative) Influenza Type B (KP) (Negative) Influenza A & B Note Independent Interpretation I performed an independent interpretation of an: EKG Interpretation: My independent interpretation patient's 12 EKG is as follows: Sinus rhythm with a first-degree AV block, rate is 81, [place] interval is 222 milliseconds, QRS is normal, QTC is prolonged 506 milliseconds, patient has ST segment depression in leads 1, aVL, V4 through V6, Q-waves in V1 and V2, no PACs, no PVCs. No old EKG for comparison. Radiology Impression Discussion of test interpretation with radiology: I have reviewed the radiologist's reading. Radiologist Impression: XR chest 1V IMPRESSION: * Mild cardiomegaly. No evidence of acute congestive heart failure. * The bronchial davis appear to be diffusely thickened. This could represent chronic airway inflammation from cigarette smoking/bronchitis. Dictated By:Tavo Momin MDSigned By:<Electronically signed by Tavo Momin MD in [place]>09/01/[address] angio chest PE protocol IMPRESSION: * No evidence of pulmonary embolism. * Mild cardiomegaly, atherosclerotic disease of coronary arteries, pulmonary edema and small pleural effusions. * A few patchy groundglass and airspace opacities are present in the right lung. These are likely related to the pulmonary edema although unable to exclude any superimposed pneumonia. Dictated By:Tavo Momin MDSigned By:<Electronically signed by Tavo Momin MD in [place]>09/01/22 1051 Critical Care Time Critical Care Time Total Critical Care Time: 75 Attestation: Critical Care: The patient was critically ill with a high probability of imminent or life threatening deterioration. I spent greater than 30 minutes of discontinuous time evaluating the patient,delivering critical care at the bedside, discussing and evaluating pertinent data with consultants. Critical care time does not include time spent performing separately billable procedures or teaching. Total time spent performing critical care was 75 minutes. Discharge Plan Discharge Clinical Impression: Acute non-ST elevation myocardial infarction (NSTEMI) [facility] Details: [facility] Prescriptions: No Action amlodipine 2.5 mg tablet 2.5 mg PO DAILY Qty: 90 3RF rosuvastatin 5 mg tablet 2.5 mg PO DAILY Qty: 45 3RF latanoprost 0.005 % drops 1 drp ophthalmic (eye) BEDTIME timolol maleate 0.5 % drops 1 drp ophthalmic (eye) BID Fluzone HighDose Quad 20-21 PF 240 mcg/0.7 mL syringe IM aspirin 81 mg tablet,delayed release (DR/EC) 81 mg PO DAILY cholecalciferol (vitamin D3) 25 mcg (1,000 unit) capsule 25 mcg PO DAILY omeprazole 20 mg capsule,delayed release(DR/EC) 20 mg PO DAILY erythromycin 5 mg/gram (0.5 %) ointment 0.5 inch ophthalmic (eye) BID Qty: 1 0RF
[2022-09-01] MEDS: iohexoL 350 MG/ML 100 ML INFUS..BTL 65 ML IV (10:32)
[2022-09-01] MEDS: Nitroglycerin/D5W 100 MG/250 ML INFUS..BTL IVCONT (10:52)
--- NOTE | 2022-09-01 11:07 | ECG_ITS ---
Test Reason : Chest pain Blood Pressure : / mmHG Vent. Rate : 079 BPM Atrial Rate : 079 BPM P-R Int : 200 ms QRS Dur : 094 ms QT Int : 436 ms P-R-T Axes : 066 -43 086 degrees QTc Int : 499 ms Sinus rhythm with Premature atrial complexes Left axis deviation Incomplete right bundle branch block Septal infarct (cited on or before 01-SEP-2022) Abnormal ECG When compared with ECG of 01-SEP-2022 08:48, Premature atrial complexes are now Present Referred By: Nathan Watts Electronically Signed By:TOI POST MD
[2022-09-01] MEDS: Atorvastatin Calcium 10 MG TABLET 80 MG PO (11:20)
[2022-09-01] MEDS: Heparin Sodium,Porcine 5,000 UNIT/ML VIAL 4000 UNIT IVPUSH (11:20)
[2022-09-01] MEDS: Heparin Sodium,Porcine/1/2NS 25,000 UNIT/250 ML IV.SOLN 8.51 UNIT IVCONT (11:26)
[2022-09-01] MEDS: Acetaminophen 325 MG TABLET 975 MG PO (14:26)
== END 2022-09-01 14:50 | disposition short-term general hospital (02) ==
PROVIDERS: Emergency Provider Emergency Medicine Emergency Medical Services; PCP Internal Medicine
DX: I21.4 Non-ST elevation (NSTEMI) myocardial infarction (principal); R07.89 Other chest pain; R06.02 Shortness of breath; M54.50 Low back pain, unspecified; F17.210 Nicotine dependence, cigarettes, uncomplicated; Z20.822 Contact with and (suspected) exposure to COVID-19; Z20.828 Contact with and (suspected) exposure to other viral communicable diseases; Z71.6 Tobacco abuse counseling; Z79.899 Other long term (current) drug therapy
CPT/HCPCS: 71045; 71275; 80053; 83690; 83880; 84484; 85025; 85610; 85730; 87502; 87635; 93005; 96365; 96375; 99285; J1643; J2270; J2405; Q9967

== ENCOUNTER 2022-09-29 09:41 | Outpatient (REF) | payer SELFPAY ==
[2022-09-28 08:41] VITALS: BP 116/54; BP 126/54; BMI 26.0
== END 2022-09-29 09:42 | disposition home or self-care (01) ==
LOC: HO.HAP 09:41
PROVIDERS: Visit Provider Internal Medicine
DX: Z46.1 Encounter for fitting and adjustment of hearing aid (principal)
CPT/HCPCS: V5299

== ENCOUNTER 2023-04-23 11:05 | Outpatient (REF) | payer OTHER, SELFPAY ==
[2022-09-28 08:41] VITALS: BP 116/54; BP 126/54
[2022-10-27 07:06] VITALS: BP 92/44
[2023-03-03 07:13] VITALS: BP 100/54; BP 126/54; BP 94/66; BMI 25.7
== END 2023-04-23 11:06 | disposition home or self-care (01) ==
LOC: HO.SH 11:05
PROVIDERS: Visit Provider Internal Medicine
DX: Z01.118 Encounter for examination of ears and hearing with other abnormal findings (principal); H90.A22 Sensorineural hearing loss, unilateral, left ear, with restricted hearing on the contralateral side; H90.A31 Mixed conductive and sensorineural hearing loss, unilateral, right ear with restricted hearing on the contralateral side
CPT/HCPCS: 92557; 92567

== ENCOUNTER 2023-04-23 12:10 | Outpatient (REF) | payer SELFPAY ==
[2023-03-03 07:13] VITALS: BP 100/54; BP 126/54; BP 94/66; BMI 25.7
--- NOTE | 2023-04-23 15:02 | MHC.AU.HA3 ---
Hearing Instrument Follow-Up- Binaural Date of Visit: 04/23/23 Right Ear: Arthur, Model, Color, Serial Number: Hemanth Cristobal [id number] SN: [id number] Color: Terri Primer Charger Repair Warranty: 06/26/2022 Primer Charger Loss and Damage Warranty: 06/26/2022 Battery Size: Rechargeable Dog Or Horse Racing Official/Slim Tube: 1M Earmold/Dome/CShell/SlimTip:Small power dome with retention tail Type of Wax Guard: Cerushield Dispensed By: [facility] Date of Fittin04/06/2019 Left Ear: Arthur, Model, Color, Serial Number: Hemanth Bealo [id number] SN: [id number] Color: Terri Primer Charger Repair Warranty: 06/26/2022 Primer Charger Loss and Damage Warranty: 06/26/2022 Battery Size: Rechargeable Dog Or Horse Racing Official/Slim Tube: 1M Earmold/Dome/CShell/SlimTip: Small open dome with retention tail Type of Wax Guard: Cerushield Dispensed By: [facility] Date of Fittin04/06/2019 Follow-Up Summary: Bel returned for hearing aid maintenance and reprogramming following updated hearing test (see separate report). Cleaned hearing aids. Vacuumed microphones. Ran through dehumidifier. Replaced domes, wax guards, and retention tails. Replaced missing right color indicator. Given change in hearing in the right ear, reprogrammed hearing aids and reran feedback analyzer. Bel noted immediate improvement in sound quality in office. She also reported the green light does not turn on in the morning after the hearing aids have charged overnight. She still sees the red or yellow light when she initially puts them in the house superintendent. There is then no light in the morning. However, they continue to last a full day with about 15 hours of use. When manually turning off/on in office today, the red light turned on when turning the hearing aids off; however, the green light did not turn on when turning back on. Will not send for repair at this time as the hearing aids are out of warranty and otherwise functioning properly. Bel will continue to monitor the hearing aids and if she notices any other issues, she will call to schedule an appointment. Recommendations: Hearing instrument follow-up or maintenance as needed. Please contact our clinic with any questions or concerns. Diagnosis Code(s): Primary Diagnosis: H90.A22 SNHL, Unilatearl, Left Ear, W/Restricted Contralateral Hearing Secondary Diagnosis: H90.A31 Mixed HL, Unilateral Right Ear, W/Restricted Contralateral Signature: Provider: Kathy Lee, [facility]
== END 2023-04-23 12:11 | disposition home or self-care (01) ==
LOC: HO.HAP 12:10
PROVIDERS: Visit Provider Internal Medicine
DX: Z46.1 Encounter for fitting and adjustment of hearing aid (principal); H90.A22 Sensorineural hearing loss, unilateral, left ear, with restricted hearing on the contralateral side; H90.A31 Mixed conductive and sensorineural hearing loss, unilateral, right ear with restricted hearing on the contralateral side
CPT/HCPCS: 92593

== ENCOUNTER 2023-04-24 07:06 | Outpatient (REF) | payer SELFPAY ==
[2023-03-03 07:13] VITALS: BP 100/54; BP 126/54; BP 94/66; BMI 25.7
[2023-04-24 07:27] LABS: MANUAL DIFF FLAG NO
[2023-04-24 07:40] LABS: Basophils Percent Auto 0.6 % (0-2); Eosinophils Absolute Auto 0.1 X10*3/uL (0.0-0.4); Eosinophils Percent Auto 1.4 % (0-4); Hematocrit 38.8 % (37.0-47.0); Hemoglobin 12.7 g/dl (12.0-16.0); Imm Gran Abs Auto 0.02 X10*3/uL (0.00-0.03); Imm Gran Pct Auto 0.3 % (0.0-0.4); Lymphocytes Absolute Auto 1.5 X10*3/uL (1.2-4.9); Lymphocytes Percent Auto 23.5 % (20-40); Mean Corpuscular HGB Conc 32.7 g/dl (31.0-35.0); Mean Corpuscular Hemoglobin 30.9 pg (27.0-33.0); Mean Corpuscular Volume 94.4 fL (80.0-98.0); Mean Platelet Volume 10.7 fL (9.4-12.3); Monocytes Absolute Auto 0.8 X10*3/uL (0.1-1.2); Monocytes Percent Auto 12.7 % (2-11); Neutrophils Percent Auto 61.5 % (45-73); Platelet Count 189 X10*3/uL (160-400); Red Blood Count 4.11 X10*6/uL (4.20-5.50); Red Cell Distribution Width 13.6 % (11.0-16.0); White Blood Count 6.5 X10*3/uL (4.8-10.8)
[2023-04-24 08:24] LABS: B Type Natriuretic Peptide 420 pg/mL (<100)
[2023-04-24 08:46] LABS: Alanine Aminotransferase 21 U/L (0-31); Alkaline Phosphatase 120 U/L (39-117); Anion Gap 15 (12-20); Aspartate Amino Transferase 24 U/L (5-31); Bilirubin Total 1.1 mg/dL (0.0-1.0); Blood Urea Nitrogen 13 mg/dL (9-16); Calcium 9.4 mg/dL (8.4-10.2); Carbon Dioxide 24 mmol/L (22-29); Chloride 105 mmol/L (96-108); Cholesterol 130 mg/dL (<200); Estimated Glomerular Filt Rate > 60; Glucose Fasting 100 mg/dL (60-99); HDL Cholesterol 54 mg/dL (>40); LDL Cholesterol Calculated 55 mg/dL (<100); Sodium 139 mmol/L (135-145); Total Protein 7.1 g/dL (6.5-8.0); Triglycerides 107 mg/dL (<150)
== END 2023-04-24 07:07 | disposition home or self-care (01) ==
LOC: HO.LAB 07:06
PROVIDERS: PCP Internal Medicine; Visit Provider Internal Medicine
DX: I25.10 Atherosclerotic heart disease of native coronary artery without angina pectoris (principal); I25.5 Ischemic cardiomyopathy
CPT/HCPCS: 36415; 80053; 80061; 83880; 85025

== ENCOUNTER 2023-04-26 11:05 | Outpatient (AMB) | payer OTHER, SELFPAY ==
[2023-03-03 07:13] VITALS: BP 100/54; BP 126/54; BP 94/66; BMI 25.7
--- NOTE | 2023-04-26 11:09 | A.OFFPC_ITS ---
Vital Signs 04/26/23 11:10 Height 5 ft 2 in Weight 140 lb BMI 25.6 BP 104/56 L Blood Pressure Location Lt brachial Position Sitting Pulse 59 Pulse Source Pulse Oximeter Pulse Oximetry (%) 100 Oxygen Delivery Method Room Air Intake Visit Reasons: 6 month follow Up Hypertension, hyperlipid Intake Note: Pt is here today for 6 months follow up visit. Allergies No Known Allergies [No Known Allergies*] Allergy (Verified 04/26/23 11:14) Medication List - Last Reconciled 04/26/23 by Pastora Sargent MD aspirin 81 mg PO DAILY atorvastatin 80 mg PO DAILY azithromycin For 250 mg dose pack: take 500 mg today (day 1), then 250 mg for 4 days (days 2-5) PO cholecalciferol (vitamin D3) 25 mcg PO DAILY flu vacc [id number](65yr up)-PF mL IM latanoprost 0.005% 1 drp ophthalmic (eye) BEDTIME metoprolol tartrate 12.5 mg PO DAILY omeprazole 20 mg PO DAILY sacubitril-valsartan 24-26 mg (Entresto) 1 tab PO BID ticagrelor 90 mg PO BID timolol maleate 0.5% 1 drp ophthalmic (eye) BID torsemide 20 mg PO DAILY PRN Tobacco use date assessed: 04/26/23 Fall risk assessment: No Falls in past year Last assessed Fall Risk: 04/26/23 Dental Screening Dental Screen Date: 04/26/23 Did you have a dental visit in the last 12 months?: Yes Did you have a dental problem in the last 6 months where you did not have access to dental care?: No Was dental information given to patient?: Patient has dentist HPI 6 month follow Up Hypertension, hyperlipid HPI Details Pt presents for f/u CAD, CHF recovered EF 04/26 Echo, hyperlipid stable on meds. [facility] Medical History Annual physical exam Vitamin D deficiency HTN (hypertension) Nephrolithiasis GERD (gastroesophageal reflux disease) Osteoporosis Glaucoma SVT (supraventricular tachycardia) Hyperlipidemia Hyperthyroidism Hearing loss Surgical History H/O colonoscopy Hx of cholecystectomy History of appendectomy Family History Father No problems noted. Mother No problems noted. Social History Housing: House Alcohol intake: current Alcohol intake frequency: a few times a month Patient Tobacco Use Status: Former Tobacco user Quit Date: 09/01/2022 Tobacco use type: Cigarette Cigarette Packs Per Day: 0.25 Cigarettes Per Day: 3 Years Smoked: 30 e-Cigarette/Vaping Use: Never Used Current occupational status: employed Cognitive needs: No Hearing needs: Yes Vision needs: Yes Questionnaire PHQ-9 Over the last 2 weeks, how often have you been bothered by any of the following problems? 1. Little interest or pleasure in doing things: not at all 2. Feeling down, depressed, or hopeless: not at all 3. Trouble falling or staying asleep, or sleeping too much: not at all 4. Feeling tired or having little energy: not at all 5. Poor appetite or overeating: not at all 6. Feeling bad about yourself - or that you are a failure or have let yourself or your family down: not at all 7. Trouble concentrating on things, such as reading the newspaper or watching television: not at all 8. Moving or speaking so slowly that other people could have noticed. Or the opposite - being so fidgety or restless that you have been moving around a lot more than usual: not at all 9. Thoughts that you would be better off or of hurting yourself in some way: not at all Total score: 0 Depression Screening Interpretation: Negative Depression Screening Done: Yes Source: Developed by Drs. Slim Recinos, Zahra Carroll, Myron Beckford and colleagues, with an educational kelby from [employer]. Thrive Questionnaire Date Thrive assessed: 07/10/22 AUDIT C Alcohol Use Questionnaire (AUDIT-C) 1. How often do you have a drink containing alcohol?: Monthly or less 2. How many drinks containing alcohol do you have on a typical day when you are drinking?: 1 or 2 3. How often do you have six or more drinks on one occasion?: Never Total Score: 1 KAY-7 AMB Questionnaire KAY-7 Date KAY - 7 assessed: 04/26/23 Feeling nervous, anxious, or on edge: 0 = Not at all Not being able to stop or control worryin = Not at all Worrying too much about different things: 0 = Not at all Trouble relaxin = Not at all Being so restless that it is hard to sit still: 0 = Not at all Becoming easily annoyed or irritable: 0 = Not at all Feeling afraid as if something awful might happen: 0 = Not at all Total KAY-7 score (0-4 normal; 5-9 mild; 10-14 moderate; 15-21 severe): 0 Source: Developed by Drs. Slim Recinos, Zahra Carroll, Myron Beckford and colleagues, with an educational kelby from [employer]. Review of Systems Const All systems reviewed & are unremarkable except as noted in HPI and below Reports no additional complaints Eyes Reports no additional complaints ENT Reports no additional complaints Card Reports no additional complaints Resp Reports no additional complaints GI Reports no additional complaints Reports no additional complaints Musc Reports no additional complaints Physical exam (Primary Care) Vital Signs: Last Vital Signs Pulse 59 04/26/23 11:10 BP 104/56 L 04/26/23 11:10 Pulse Ox 100 04/26/23 11:10 Oxygen Delivery Method Room Air 04/26/23 11:10 BMI result Body Mass Index 25.6 Tobacco/Smoking Status: Tobacco use Status Tobacco use date assessed 04/26/23 04/26/23 11:17 Patient Tobacco Use Status Former Tobacco user 04/26/23 11:17 Tobacco use type Cigarette 04/26/23 11:17 e-Cigarette/Vaping Use Never Used 04/26/23 11:17 PHQ-9: PHQ-9 Score PHQ-9: Total score 0 04/26/23 11:22 Depression Screening Interpretation: Negative Thrive Assessment: Date of Thrive Assessment Date Thrive assessed 07/10/22 04/26/23 11:17 Const General: no acute distress HENMT Head: Yes normal to inspection Ears: hearing grossly normal bilaterally Face and sinus: Yes normal facial exam Neck Neck: Yes supple Resp Effort & Inspection: normal respiratory effort Auscultation: clear to auscultation bilaterally Cardio Rhythm: regular rhythm Heart sounds: S1 normal heart sound present and S2 normal heart sound present GI Inspection: Yes normal to inspection Palpation (GI): Soft to palpation Assessment and Plan Assessment & Plan (1) CAD (coronary artery disease): Comment: S/P NSTEMI LMCA STEPHANIE 09/[address] [facility] [address] Jiang Code(s): I25.10 - Atherosclerotic heart disease of [place] coronary artery without angina pectoris Plan: Continue current medications follow-up with cardiology every 6 months (2) Ischemic cardiomyopathy: Comment: cardiogenic shock after NSTEMI 09/24, Echo EF 15-20%. Akinesis of apex, distal, anterioseptal, lateral and anterior davis, moderate MR, repeat ECHO nl EF 04/26 Code(s): I25.5 - Ischemic cardiomyopathy (3) Hyperlipidemia: Code(s): E78.5 - Hyperlipidemia, unspecified Plan: Continue statin follow-up in 6 months with a fasting labs before Orders: Orders Complete Blood Count Auto Diff 6 Months E78.5 - Hyperlipidemia, unspecified, I25.10 - Atherosclerotic heart disease of [place] coronary artery without angina pectoris, I25.5 - Ischemic cardiomyopathy TSH reflex Free T4 6 Months E78.5 - Hyperlipidemia, unspecified, I25.10 - Atherosclerotic heart disease of [place] coronary artery without angina pectoris, I25.5 - Ischemic cardiomyopathy Comprehensive [place]. Panel Fast 6 Months E78.5 - Hyperlipidemia, unspecified, I25.10 - Atherosclerotic heart disease of [place] coronary artery without angina pectoris, I25.5 - Ischemic cardiomyopathy Lipid Panel 6 Months E78.5 - Hyperlipidemia, unspecified, I25.10 - Atherosclerotic heart disease of [place] coronary artery without angina pectoris, I25.5 - Ischemic cardiomyopathy Medications: Changed From metoprolol tartrate 12.5 mg (1/2 x 25 mg) PO BID 90 tabs 0RF To metoprolol tartrate 12.5 mg PO DAILY From torsemide 20 mg PO DAILY 90 tabs 2RF To torsemide 20 mg PO DAILY PRN Coding Level of Care Code Est Pt Level 4 (21981) Diagnoses CAD (coronary artery disease) I25.10 Ischemic cardiomyopathy I25.5 Hyperlipidemia E78.5
[2023-04-26 11:10] VITALS: BP 104/56; PULSE 59; O2SAT 100; BMI 25.6
== END 2023-04-26 12:01 | disposition home or self-care (01) ==
PROVIDERS: PCP Internal Medicine; Visit Provider Internal Medicine
DX: I25.10 Atherosclerotic heart disease of native coronary artery without angina pectoris (principal); I25.5 Ischemic cardiomyopathy; E78.5 Hyperlipidemia, unspecified
CPT/HCPCS: 99214

== ENCOUNTER 2023-07-12 07:52 | Outpatient (AMB) | payer MEDICARE, SELFPAY ==
[2023-03-03 07:13] VITALS: BP 100/54; BP 126/54; BP 94/66; BMI 25.7
--- NOTE | 2023-07-12 07:59 | MHC.PC.OV ---
Vital Signs 07/12/23 08:00 Height 5 ft 2 in Weight 141 lb BMI 25.8 BP 142/64 H Blood Pressure Location Lt brachial Position Sitting Pulse 51 Pulse Source Pulse Oximeter Pulse Oximetry (%) 98 Oxygen Delivery Method Room Air Intake Visit Reasons: PE Intake Note: Pt is here today for PE. Allergies No Known Allergies [No Known Allergies*] Allergy (Verified 07/12/23 08:03) Medication List - Last Reconciled 07/12/23 by Pastora Sargent MD aspirin 81 mg PO DAILY atorvastatin 80 mg PO DAILY cholecalciferol (vitamin D3) 25 mcg PO DAILY flu vacc [id number](65yr up)-PF mL IM latanoprost 0.005% 1 drp ophthalmic (eye) BEDTIME metoprolol tartrate 12.5 mg PO DAILY omeprazole 20 mg PO DAILY sacubitril-valsartan 24-26 mg (Entresto) 1 tab PO BID ticagrelor 90 mg PO BID timolol maleate 0.5% 1 drp ophthalmic (eye) BID torsemide 20 mg PO DAILY PRN Tobacco use date assessed: 07/12/23 Fall risk assessment: No Falls in past year Last assessed Fall Risk: 07/12/23 Dental Screening Dental Screen Date: 07/12/23 Did you have a dental visit in the last 12 months?: Yes Did you have a dental problem in the last 6 months where you did not have access to dental care?: No Was dental information given to patient?: Patient has dentist HPI PE HPI Details Patient presents for physical. [facility] Medical History Annual physical exam Vitamin D deficiency HTN (hypertension) Nephrolithiasis GERD (gastroesophageal reflux disease) Osteoporosis Glaucoma SVT (supraventricular tachycardia) Hyperlipidemia Hyperthyroidism Hearing loss Surgical History H/O colonoscopy Hx of cholecystectomy History of appendectomy Family History Father No problems noted. Mother No problems noted. Social History Housing: House Alcohol intake: current Alcohol intake frequency: a few times a month Patient Tobacco Use Status: Former Tobacco user Quit Date: 09/01/2022 Tobacco use type: Cigarette Cigarette Packs Per Day: 0.25 Cigarettes Per Day: 3 Years Smoked: 30 e-Cigarette/Vaping Use: Never Used Current occupational status: employed Cognitive needs: No Hearing needs: Yes Vision needs: Yes Questionnaire PHQ-9 Over the last 2 weeks, how often have you been bothered by any of the following problems? 1. Little interest or pleasure in doing things: not at all 2. Feeling down, depressed, or hopeless: not at all 3. Trouble falling or staying asleep, or sleeping too much: not at all 4. Feeling tired or having little energy: not at all 5. Poor appetite or overeating: not at all 6. Feeling bad about yourself - or that you are a failure or have let yourself or your family down: not at all 7. Trouble concentrating on things, such as reading the newspaper or watching television: not at all 8. Moving or speaking so slowly that other people could have noticed. Or the opposite - being so fidgety or restless that you have been moving around a lot more than usual: not at all 9. Thoughts that you would be better off or of hurting yourself in some way: not at all Total score: 0 Depression Screening Interpretation: Negative Depression Screening Done: Yes Source: Developed by Drs. Slim Recinos, Zahra Carroll, Myron Beckford and colleagues, with an educational kelby from [employer]. Thrive Questionnaire Date Thrive assessed: 07/12/23 I am a: Patient What is your living situation today?: I have a steady place to live Within the past 12 months, did the food you bought not last and you didn't have the money to get more?: Never true Within the past 12 months, did you worry whether your food would run out before you got money to buy more?: Never true Do you have trouble paying for medicines?: No Do you have trouble getting transportation to medical appointments?: No Do you have trouble paying your heating and electricity bill?: No Do you have trouble taking care of your child, family member or friend?: No Do you have trouble with day-to-day activities such as bathing, preparing meals, shopping, managing finances, etc.?: No Are you currently unemployed and looking for a job?: No Are you interested in more education?: No Please select the resources that you would like help with: None Currently or been in a relationship where the following occur: no concerns reported KAY-7 AMB Questionnaire KAY-7 Date KAY - 7 assessed: 07/12/23 Feeling nervous, anxious, or on edge: 0 = Not at all Not being able to stop or control worryin = Not at all Worrying too much about different things: 0 = Not at all Trouble relaxin = Not at all Being so restless that it is hard to sit still: 0 = Not at all Becoming easily annoyed or irritable: 0 = Not at all Feeling afraid as if something awful might happen: 0 = Not at all Total KAY-7 score (0-4 normal; 5-9 mild; 10-14 moderate; 15-21 severe): 0 Source: Developed by Drs. Slim Recinos, Zahra Carroll, Myron Beckford and colleagues, with an educational kelby from [employer]. Review of Systems Const All systems reviewed & are unremarkable except as noted in HPI and below Reports no additional complaints Eyes Reports no additional complaints ENT Reports no additional complaints Card Reports no additional complaints Resp Reports no additional complaints GI Reports no additional complaints Reports no additional complaints Physical exam (Primary Care) Vital Signs: Last Vital Signs Pulse 51 07/12/23 08:00 BP 142/64 H 07/12/23 08:00 Pulse Ox 98 07/12/23 08:00 Oxygen Delivery Method Room Air 07/12/23 08:00 BMI result Body Mass Index 25.8 Tobacco/Smoking Status: Tobacco use Status Tobacco use date assessed 07/12/23 07/12/23 08:10 Patient Tobacco Use Status Former Tobacco user 07/12/23 08:10 Tobacco use type Cigarette 07/12/23 08:10 e-Cigarette/Vaping Use Never Used 07/12/23 08:10 PHQ-9: PHQ-9 Score PHQ-9: Total score 0 07/12/23 14:52 Depression Screening Interpretation: Negative Thrive Assessment: Date of Thrive Assessment Date Thrive assessed 07/12/23 07/12/23 08:14 Currently or been in a relationship where the following occur: no concerns reported Const General: no acute distress HENMT Head: Yes normal to inspection General nose exam: Normal external nose present Face and sinus: Yes normal facial exam Throat: Yes posterior oropharynx normal Eyes General: appearance normal, both eyes and all related structures Neck Neck: Yes no lymphadenopathy and Yes supple Resp Effort & Inspection: normal respiratory effort Auscultation: clear to auscultation bilaterally Cardio Rhythm: regular rhythm Heart sounds: S1 normal heart sound present and S2 normal heart sound present GI Inspection: Yes normal to inspection Palpation (GI): Soft to palpation Percussion: Yes normal to percussion Auscultation: normal bowel sounds Assessment and Plan Assessment & Plan (1) Ischemic cardiomyopathy: Comment: cardiogenic shock after NSTEMI 09/24, Echo EF 15-20%. Akinesis of apex, distal, anterioseptal, lateral and anterior davis, moderate MR, repeat ECHO nl EF 04/26 Code(s): I25.5 - Ischemic cardiomyopathy Plan: Repeated echocardiogram showed normalized ejection fraction. Continue current medications . Patient is noted to have elevated blood pressure and increasing Entresto to 49/51 mg twice a day discussed with the patient . she would like to discussed with her information and referral director next month. Patient was advised to have a blood pressure checked in 1 week, avoid excessive salt intake and exercise regularly (2) CAD (coronary artery disease): Comment: S/P NSTEMI LMCA STEPHANIE 09/24 [facility] [address] Jiang Code(s): I25.10 - Atherosclerotic heart disease of [place] coronary artery without angina pectoris Plan: Continue current medications include statin and metoprolol (3) Thyroid nodule: Code(s): E04.1 - Nontoxic single thyroid nodule Plan: Follow-up with endocrinology (4) Annual physical exam: Code(s): Z00.00 - Encounter for general adult medical examination without abnormal findings Plan: Well-balanced diet regular physical activity discussed with the patient. (5) HTN (hypertension): Code(s): I10 - Essential (primary) hypertension Plan: See above Orders: Orders Basic Metabolic Panel 1 Week I25.10 - Atherosclerotic heart disease of [place] coronary artery without angina pectoris, I25.5 - Ischemic cardiomyopathy US thyroid Today E04.1 - Nontoxic single thyroid nodule Medications: New sacubitril-valsartan 49-51 mg (Entresto) 1 tab PO BID 60 tabs 0RF Coding Level of Care Code Est Pt Prev Care >65y(52824) Diagnoses Ischemic cardiomyopathy I25.5 CAD (coronary artery disease) I25.10 Thyroid nodule E04.1 Annual physical exam Z00.00 HTN (hypertension) I10
[2023-07-12 08:00] VITALS: BP 142/64; PULSE 51; O2SAT 98; BMI 25.8
== END 2023-07-12 09:19 | disposition home or self-care (01) ==
PROVIDERS: PCP Internal Medicine; Visit Provider Internal Medicine
DX: I25.5 Ischemic cardiomyopathy (principal); I25.10 Atherosclerotic heart disease of native coronary artery without angina pectoris; E04.1 Nontoxic single thyroid nodule; Z00.00 Encounter for general adult medical examination without abnormal findings; I10 Essential (primary) hypertension
CPT/HCPCS: 99397

== ENCOUNTER 2023-07-31 07:31 | Outpatient (REF) | payer OTHER, SELFPAY ==
[2023-03-03 07:13] VITALS: BP 100/54; BP 126/54; BP 94/66; BMI 25.7
[2023-07-31 07:55] LABS: MANUAL DIFF FLAG NO
[2023-07-31 09:23] LABS: Basophils Percent Auto 0.6 % (0-2); Eosinophils Absolute Auto 0.1 X10*3/uL (0.0-0.4); Eosinophils Percent Auto 1.3 % (0-4); Hemoglobin 13.6 g/dl (12.0-16.0); Imm Gran Abs Auto 0.01 X10*3/uL (0.00-0.03); Imm Gran Pct Auto 0.2 % (0.0-0.4); Lymphocytes Absolute Auto 1.8 X10*3/uL (1.2-4.9); Lymphocytes Percent Auto 28.1 % (20-40); Mean Corpuscular HGB Conc 33.2 g/dl (31.0-35.0); Mean Corpuscular Hemoglobin 30.5 pg (27.0-33.0); Mean Corpuscular Volume 91.9 fL (80.0-98.0); Mean Platelet Volume 11.2 fL (9.4-12.3); Monocytes Absolute Auto 0.8 X10*3/uL (0.1-1.2); Monocytes Percent Auto 13.2 % (2-11); Neutrophils Absolute Auto 3.6 x10*3/uL (2.0-8.3); Neutrophils Percent Auto 56.6 % (45-73); Platelet Count 217 X10*3/uL (160-400); Red Blood Count 4.46 X10*6/uL (4.20-5.50); Red Cell Distribution Width 13.5 % (11.0-16.0); White Blood Count 6.3 X10*3/uL (4.8-10.8)
[2023-07-31 10:32] LABS: Alanine Aminotransferase 17 U/L (0-31); Albumin Level 3.9 g/dL (3.5-5.0); Alkaline Phosphatase 119 U/L (39-117); Anion Gap 15 (12-20); Aspartate Amino Transferase 20 U/L (5-31); Blood Urea Nitrogen 22 mg/dL (9-16); Calcium 9.3 mg/dL (8.4-10.2); Carbon Dioxide 24 mmol/L (22-29); Chloride 104 mmol/L (96-108); Cholesterol 130 mg/dL (<200); Estimated Glomerular Filt Rate > 60; Glucose Fasting 83 mg/dL (60-99); Glucose Random 81 mg/dL (60-115); HDL Cholesterol 50 mg/dL (>40); LDL Cholesterol Calculated 65 mg/dL (<100); Sodium 138 mmol/L (135-145); Total Protein 7.4 g/dL (6.5-8.0); Triglycerides 79 mg/dL (<150)
[2023-07-31 10:50] LABS: TSH reflex Free T4 1.09 uIU/mL (0.32-4.0)
== END 2023-07-31 07:32 | disposition home or self-care (01) ==
LOC: HO.LAB 07:31
PROVIDERS: PCP Internal Medicine; Visit Provider Internal Medicine
DX: I25.10 Atherosclerotic heart disease of native coronary artery without angina pectoris (principal); I25.5 Ischemic cardiomyopathy; E75.5 Other lipid storage disorders
CPT/HCPCS: 36415; 80048; 80053; 80061; 84443; 85025

== ENCOUNTER 2023-08-13 11:01 | Outpatient (AMB) | payer OTHER, SELFPAY ==
[2023-03-03 07:13] VITALS: BP 100/54; BP 126/54; BP 94/66; BMI 25.7
[2023-08-13 11:10] VITALS: BP 128/56; PULSE 52; O2SAT 99; BMI 25.8
--- NOTE | 2023-08-13 11:10 | A.OFFPC_ITS ---
Vital Signs 08/13/23 11:10 Height 5 ft 2 in Weight 141 lb BMI 25.8 BP 128/56 L Blood Pressure Location Lt brachial Position Sitting Pulse 52 Pulse Source Pulse Oximeter Pulse Oximetry (%) 99 Oxygen Delivery Method Room Air Intake Visit Reasons: 1 Month follow up Intake Note: Pt is here today for 1 month follow up visit. Allergies No Known Allergies [No Known Allergies*] Allergy (Verified 07/12/23 08:03) Medication List - Last Reconciled 08/13/23 by Pastora Sargent MD aspirin 81 mg PO DAILY atorvastatin 80 mg PO DAILY flu vacc [id number](65yr up)-PF mL IM latanoprost 0.005% 1 drp ophthalmic (eye) BEDTIME metoprolol tartrate 12.5 mg PO DAILY omeprazole 20 mg PO DAILY sacubitril-valsartan 49-51 mg (Entresto) 1 tab PO BID ticagrelor 90 mg PO BID timolol maleate 0.5% 1 drp ophthalmic (eye) BID torsemide 20 mg PO DAILY PRN Tobacco use date assessed: 08/13/23 HPI 1 Month follow up HPI Details Patient presents for the follow-up on hypertension. She increase Entresto dose 2 weeks ago and has been tolerating well. Patient denies chest pain shortness for breath or palpitations PND or orthopnea PFSH Medical History Annual physical exam Vitamin D deficiency HTN (hypertension) Nephrolithiasis GERD (gastroesophageal reflux disease) Osteoporosis Glaucoma SVT (supraventricular tachycardia) Hyperlipidemia Hyperthyroidism Hearing loss Surgical History H/O colonoscopy Hx of cholecystectomy History of appendectomy Family History Father No problems noted. Mother No problems noted. Social History Housing: House Alcohol intake: current Alcohol intake frequency: a few times a month Patient Tobacco Use Status: Former Tobacco user Quit Date: 09/01/2022 Tobacco use type: Cigarette Cigarette Packs Per Day: 0.25 Cigarettes Per Day: 3 Years Smoked: 30 e-Cigarette/Vaping Use: Never Used Current occupational status: employed Cognitive needs: No Hearing needs: Yes Vision needs: Yes Questionnaire Thrive Questionnaire Date Thrive assessed: 07/12/23 KAY-7 AMB Questionnaire KAY-7 Date KAY - 7 assessed: 07/12/23 Source: Developed by Drs. Slim Recinos, Zahra Carroll, Myron Beckford and colleagues, with an educational kelby from [employer]. Review of Systems Const All systems reviewed & are unremarkable except as noted in HPI and below Reports no additional complaints Eyes Reports no additional complaints ENT Reports no additional complaints Card Reports no additional complaints Resp Reports no additional complaints GI Reports no additional complaints Reports no additional complaints Physical exam (Primary Care) Vital Signs: Last Vital Signs Pulse 52 08/13/23 11:10 BP 128/56 L 08/13/23 11:10 Pulse Ox 99 08/13/23 11:10 Oxygen Delivery Method Room Air 08/13/23 11:10 BMI result Body Mass Index 25.8 Tobacco/Smoking Status: Tobacco use Status Tobacco use date assessed 08/13/23 08/13/23 11:19 Patient Tobacco Use Status Former Tobacco user 08/13/23 11:11 Tobacco use type Cigarette 08/13/23 11:11 e-Cigarette/Vaping Use Never Used 08/13/23 11:11 Thrive Assessment: Date of Thrive Assessment Date Thrive assessed 07/12/23 08/13/23 11:11 Const General: no acute distress HENMT Head: Yes normal to inspection Neck Neck: Yes supple Resp Effort & Inspection: normal respiratory effort Auscultation: clear to auscultation bilaterally Cardio Rate: bradycardic Rhythm: regular rhythm Heart sounds: S1 normal heart sound present and S2 normal heart sound present Assessment and Plan Assessment & Plan (1) HTN (hypertension): Code(s): I10 - Essential (primary) hypertension Plan: Continue current medications and check basic metabolic panel today. EKG shows sinus bradycardia at 47 first-degree AV block no interval ST-T changes. Patient will continue 12.5 mg of metoprolol for now will follow-up with cardiology in October Orders: Orders Basic Metabolic Panel Today I10 - Essential (primary) hypertension Coding Level of Care Code Est Pt Level 3 (44168) Diagnoses HTN (hypertension) I10
== END 2023-08-13 11:58 | disposition home or self-care (01) ==
PROVIDERS: PCP Internal Medicine; Visit Provider Internal Medicine
DX: I10 Essential (primary) hypertension (principal)
CPT/HCPCS: 99213

== ENCOUNTER 2023-08-13 11:56 | Outpatient (REF) | payer OTHER, SELFPAY ==
[2023-03-03 07:13] VITALS: BP 100/54; BP 126/54; BP 94/66; BMI 25.7
[2023-08-13 14:40] LABS: Anion Gap 11 (12-20); Blood Urea Nitrogen 18 mg/dL (9-16); Calcium 9.2 mg/dL (8.4-10.2); Carbon Dioxide 27 mmol/L (22-29); Chloride 104 mmol/L (96-108); Estimated Glomerular Filt Rate > 60; Glucose Random 92 mg/dL (60-115); Potassium 4.2 mmol/L (3.3-5.1); Sodium 138 mmol/L (135-145)
== END 2023-08-13 11:57 | disposition home or self-care (01) ==
LOC: HO.HMGCLDS 11:56
PROVIDERS: PCP Internal Medicine; Visit Provider Internal Medicine
DX: I10 Essential (primary) hypertension (principal)
CPT/HCPCS: 36415; 80048

== ENCOUNTER 2023-08-16 07:50 | Outpatient (REF) | payer OTHER, SELFPAY ==
[2023-03-03 07:13] VITALS: BP 100/54; BP 126/54; BP 94/66; BMI 25.7
--- NOTE | ~2023-08-16 | US_ITS ---
EXAMINATION: US THYROID CLINICAL INFORMATION: Nontoxic single thyroid nodule. COMPARISON: None available. TECHNIQUE: Linear transducer landon-scale and color Doppler examination with attention to the region of the thyroid. FINDINGS: SIZE: Measurements of the thyroid lobes and nodules are given in sagittal, anteroposterior and transverse dimensions respectively. Right Thyroid Lobe: 5.5 x 1.9 x 2.1 cm, volume 11.3 mL. Parenchyma: The gland echotexture is homogeneous. Thyroid vascularity is normal. Left Thyroid Lobe: 4.8 x 2.3 x 1.4 cm, volume 8.3 mL. Parenchyma: The gland echotexture is homogeneous. Thyroid vascularity is normal. Isthmus: 0.6 cm in maximum AP dimension. Estimated total number of nodules greater than or equal to 1 cm: 0. Home Health Speech Therapist nodules are described as follows: 1. Location: Right mid/lateral. Size: 0.98 x 0.6 x 0.97 cm, volume 0.29 mL. Nodule characteristics: Composition: Spongiform (0). Echogenicity: Anechoic (0). Shape: Not taller than wide (0). Margins: Smooth (0). Echogenic Foci: None (0). ACR TI-RADS total points: 0 ACR TI-RADS category: 1 2. Location: Left mid. Size: 0.6 x 0.4 x 0.6 cm, volume 0.07 mL. Nodule characteristics: Composition: Solid/almost completely solid (2). Echogenicity: Hyperechoic (1). Shape: Not taller than wide (0). Margins: Smooth (0). Echogenic Foci: None (0). ACR TI-RADS total points: 3 ACR TI-RADS category: 3 NODES: No lymphadenopathy is seen in the tissue surrounding the thyroid gland. US/US thyroid IMPRESSION: Left mid 0.6 cm TR 3 thyroid nodule. ACR TI-RADS RECOMMENDATION REFERENCE: Ultrasound-guided fine-needle aspiration, followup ultrasound, no further follow up. * TR1 (0 point) and TR2 (2 points): No FNA or follow up. * TR3 (3 points): FNA if more than or equal to 2.5 cm in maximum dimension, followup ultrasound in 1, 3 and 5 years if 1.5 to 2.4 cm in maximum dimension. * TR4 (4-6 points): FNA if more than or equal to 1.5 cm in maximum dimension, followup ultrasound in 1, 2, 3 and 5 years if 1 to 1.4 cm in maximum dimension. * TR5 (more than or equal to 7 points): FNA if more than or equal to 1 cm in maximum dimension, followup ultrasound every year for 5 years if 0.5 to 0.9 cm in maximum dimension. * TR3, TR4 or TR5 nodules that are below the size threshold for followup receive no follow up.
== END 2023-08-16 07:51 | disposition home or self-care (01) ==
LOC: HO.US 07:50
PROVIDERS: PCP Internal Medicine; Visit Provider Internal Medicine
DX: E04.1 Nontoxic single thyroid nodule (principal)
CPT/HCPCS: 76536

== ENCOUNTER 2023-10-26 08:51 | Outpatient (AMB) | payer OTHER, SELFPAY ==
[2023-03-03 07:13] VITALS: BP 100/54; BP 126/54; BP 94/66; BMI 25.7
[2023-10-26 08:53] VITALS: BP 128/66; PULSE 57; O2SAT 99; BMI 26.3
--- NOTE | 2023-10-26 08:53 | MHC.PC.OV ---
Vital Signs 10/26/23 08:53 Height 5 ft 2 in Weight 144 lb BMI 26.3 BP 128/66 Blood Pressure Location Lt brachial Position Sitting Pulse 57 Pulse Source Pulse Oximeter Pulse Oximetry (%) 99 Oxygen Delivery Method Room Air Intake Visit Reasons: 6 month f/u Intake Note: Pt is here today for a follow up visit. Allergies No Known Allergies [No Known Allergies*] Allergy (Verified 10/26/23 09:00) Medication List - Last Reconciled 10/26/23 by Pastora Sargent MD aspirin 81 mg PO DAILY atorvastatin 80 mg PO DAILY flu vacc [id number](65yr up)-PF mL IM latanoprost 0.005% 1 drp ophthalmic (eye) BEDTIME metoprolol tartrate 12.5 mg PO DAILY omeprazole 20 mg PO DAILY sacubitril-valsartan 49-51 mg (Entresto) 1 tab PO BID ticagrelor 90 mg PO BID timolol maleate 0.5% 1 drp ophthalmic (eye) BID torsemide 20 mg PO DAILY PRN Tobacco use date assessed: 08/13/23 Dental Screening Dental Screen Date: 07/12/23 HPI 6 month f/u HPI Details Pt presents for CAD, HTN, hyperlipid, stable on meds. Patient follows up with Cardiology every 6 months. [facility] Medical History (Updated 10/26/23 @ 09:33 by Pastora Sargent MD) Annual physical exam Vitamin D deficiency HTN (hypertension) Nephrolithiasis GERD (gastroesophageal reflux disease) Osteoporosis Glaucoma SVT (supraventricular tachycardia) Hyperlipidemia Hyperthyroidism Hearing loss Surgical History H/O colonoscopy Hx of cholecystectomy History of appendectomy Family History Father No problems noted. Mother No problems noted. Social History Housing: House Alcohol intake: current Alcohol intake frequency: a few times a month Patient Tobacco Use Status: Former Tobacco user Quit Date: 09/01/2022 Tobacco use type: Cigarette Cigarette Packs Per Day: 0.25 Cigarettes Per Day: 3 Years Smoked: 30 e-Cigarette/Vaping Use: Never Used service: No Current occupational status: employed Cognitive needs: No Hearing needs: Yes Vision needs: Yes Questionnaire Thrive Questionnaire Date Thrive assessed: 07/12/23 KAY-7 AMB Questionnaire KAY-7 Date KAY - 7 assessed: 07/12/23 Source: Developed by Drs. Slim Recinos, Zahra Carroll, Myron Beckford and colleagues, with an educational kelby from [employer]. Review of Systems Const All systems reviewed & are unremarkable except as noted in HPI and below ENT Reports no additional complaints Card Reports no additional complaints Resp Reports no additional complaints GI Reports no additional complaints Reports no additional complaints Physical exam (Primary Care) Vital Signs: Last Vital Signs Pulse 57 10/26/23 08:53 BP 128/66 10/26/23 08:53 Pulse Ox 99 10/26/23 08:53 Oxygen Delivery Method Room Air 10/26/23 08:53 BMI result Body Mass Index 26.3 Tobacco/Smoking Status: Tobacco use Status Tobacco use date assessed 08/13/23 10/26/23 08:53 Patient Tobacco Use Status Former Tobacco user 10/26/23 08:53 Tobacco use type Cigarette 10/26/23 08:53 e-Cigarette/Vaping Use Never Used 10/26/23 08:53 Thrive Assessment: Date of Thrive Assessment Date Thrive assessed 07/12/23 10/26/23 08:53 Const General: no acute distress HENMT Head: Yes normal to inspection Mouth: Normal oral and palatal mucosa present Throat: Yes posterior oropharynx normal Eyes General: appearance normal, both eyes and all related structures Neck Neck: Yes supple Resp Effort & Inspection: normal respiratory effort Auscultation: clear to auscultation bilaterally Cardio Rhythm: regular rhythm Heart sounds: S1 normal heart sound present and S2 normal heart sound present GI Inspection: Yes normal to inspection Palpation (GI): Soft to palpation Percussion: Yes normal to percussion Auscultation: normal bowel sounds Assessment and Plan Assessment & Plan (1) Hyperlipidemia: Code(s): E78.5 - Hyperlipidemia, unspecified Plan: Continue statin (2) HTN (hypertension): Code(s): I10 - Essential (primary) hypertension Plan: Continue current medications (3) Vitamin D deficiency: Code(s): E55.9 - Vitamin D deficiency, unspecified (4) Ischemic cardiomyopathy: Comment: cardiogenic shock after NSTEMI 09/24, Echo EF 15-20%. Akinesis of apex, distal, anterioseptal, lateral and anterior davis, moderate MR, repeat ECHO nl EF 04/26, f/u Cardiology [facility] Code(s): I25.5 - Ischemic cardiomyopathy Plan: Ejection fraction recovered, continue current medications follow-up with Cardiology Orders: Orders Comprehensive Met. Panel 3 Months E55.9 - Vitamin D deficiency, unspecified, E78.5 - Hyperlipidemia, unspecified, I10 - Essential (primary) hypertension, I25.5 - Ischemic cardiomyopathy Complete Blood Count Auto Diff 3 Months E55.9 - Vitamin D deficiency, unspecified, E78.5 - Hyperlipidemia, unspecified, I10 - Essential (primary) hypertension, I25.5 - Ischemic cardiomyopathy Lipid Panel 3 Months E55.9 - Vitamin D deficiency, unspecified, E78.5 - Hyperlipidemia, unspecified, I10 - Essential (primary) hypertension, I25.5 - Ischemic cardiomyopathy TSH reflex Free T4 3 Months E55.9 - Vitamin D deficiency, unspecified, E78.5 - Hyperlipidemia, unspecified, I10 - Essential (primary) hypertension, I25.5 - Ischemic cardiomyopathy Coding Level of Care Code Est Pt Level 4 (27623) Diagnoses Hyperlipidemia E78.5 HTN (hypertension) I10 Vitamin D deficiency E55.9 Ischemic cardiomyopathy I25.5
== END 2023-10-26 09:41 | disposition home or self-care (01) ==
PROVIDERS: PCP Internal Medicine; Visit Provider Internal Medicine
DX: E78.5 Hyperlipidemia, unspecified (principal); I10 Essential (primary) hypertension; E55.9 Vitamin D deficiency, unspecified; I25.5 Ischemic cardiomyopathy
CPT/HCPCS: 99214

== ENCOUNTER 2024-01-31 06:06 | Outpatient (REF) | payer OTHER, SELFPAY ==
[2023-03-03 07:13] VITALS: BP 100/54; BP 126/54; BP 94/66; BMI 25.7
[2024-01-31 06:18] LABS: MANUAL DIFF FLAG NO
[2024-01-31 07:30] LABS: Basophils Absolute Auto 0.1 X10*3/uL (0.0-0.2); Basophils Percent Auto 0.9 % (0-2); Eosinophils Absolute Auto 0.1 X10*3/uL (0.0-0.4); Eosinophils Percent Auto 1.4 % (0-4); Hematocrit 39.6 % (37.0-47.0); Hemoglobin 13.1 g/dl (12.0-16.0); Imm Gran Abs Auto 0.01 X10*3/uL (0.00-0.03); Imm Gran Pct Auto 0.2 % (0.0-0.4); Lymphocytes Absolute Auto 1.8 X10*3/uL (1.2-4.9); Lymphocytes Percent Auto 32.5 % (20-40); Mean Corpuscular HGB Conc 33.1 g/dl (31.0-35.0); Mean Corpuscular Hemoglobin 30.1 pg (27.0-33.0); Mean Platelet Volume 10.8 fL (9.4-12.3); Monocytes Absolute Auto 0.7 X10*3/uL (0.1-1.2); Monocytes Percent Auto 13.1 % (2-11); Neutrophils Absolute Auto 2.9 x10*3/uL (2.0-8.3); Neutrophils Percent Auto 51.9 % (45-73); Platelet Count 187 X10*3/uL (160-400); Red Blood Count 4.35 X10*6/uL (4.20-5.50); Red Cell Distribution Width 13.4 % (11.0-16.0); White Blood Count 5.7 X10*3/uL (4.8-10.8)
[2024-01-31 07:57] LABS: Alanine Aminotransferase 17 U/L (0-31); Albumin Level 3.9 g/dL (3.5-5.0); Alkaline Phosphatase 103 U/L (39-117); Anion Gap 13 (12-20); Aspartate Amino Transferase 20 U/L (5-31); Blood Urea Nitrogen 13 mg/dL (9-16); Calcium 9.3 mg/dL (8.4-10.2); Carbon Dioxide 25 mmol/L (22-29); Chloride 105 mmol/L (96-108); Cholesterol 128 mg/dL (<200); Estimated Glomerular Filt Rate > 60; Glucose Random 96 mg/dL (60-115); HDL Cholesterol 47 mg/dL (>40); LDL Cholesterol Calculated 64 mg/dL (<100); Potassium 4.4 mmol/L (3.3-5.1); Sodium 139 mmol/L (135-145); Triglycerides 88 mg/dL (<150)
== END 2024-01-31 06:07 | disposition home or self-care (01) ==
LOC: HO.LAB 06:06
PROVIDERS: PCP Internal Medicine; Visit Provider Internal Medicine
DX: I25.5 Ischemic cardiomyopathy (principal); I10 Essential (primary) hypertension; E78.5 Hyperlipidemia, unspecified; E55.9 Vitamin D deficiency, unspecified
CPT/HCPCS: 36415; 80053; 80061; 84443; 85025

== ENCOUNTER 2024-02-21 09:24 | Outpatient (AMB) | payer OTHER, SELFPAY ==
[2023-03-03 07:13] VITALS: BP 100/54; BP 126/54; BP 94/66; BMI 25.7
[2024-02-21 09:29] VITALS: BP 116/64; PULSE 49; O2SAT 99; BMI 25.8
--- NOTE | 2024-02-21 09:29 | A.OFFPC_ITS ---
Vital Signs 02/21/24 09:29 Height 5 ft 2 in Weight 141 lb BMI 25.8 BP 116/64 Blood Pressure Location Lt brachial Position Sitting Pulse 49 L Pulse Source Pulse Oximeter Pulse Oximetry (%) 99 Oxygen Delivery Method Room Air Intake Visit Reasons: 4 month f/u - see comment Intake Note: Pt is here today for 4 months follow up visit. Allergies No Known Allergies [No Known Allergies*] Allergy (Verified 02/21/24 09:30) Medication List - Last Reconciled 02/21/24 by Pastora Sargent MD aspirin 81 mg PO DAILY atorvastatin 80 mg PO DAILY flu vacc [id number](65yr up)-PF mL IM latanoprost 0.005% 1 drp ophthalmic (eye) BEDTIME metoprolol tartrate 12.5 mg PO DAILY omeprazole 20 mg PO DAILY sacubitril-valsartan 49-51 mg (Entresto) 1 tab PO BID timolol maleate 0.5% 1 drp ophthalmic (eye) BID Tobacco use date assessed: 02/21/24 Dental Screening Dental Screen Date: 07/12/23 HPI 4 month f/u - see comment HPI Details Patient presents for the follow-up of hypertension hyperlipidemia history of ischemic cardiomyopathy now with recovered ejection fraction. [facility] Medical History Annual physical exam Vitamin D deficiency HTN (hypertension) Nephrolithiasis GERD (gastroesophageal reflux disease) Osteoporosis Glaucoma SVT (supraventricular tachycardia) Hyperlipidemia Hyperthyroidism Hearing loss Surgical History H/O colonoscopy Hx of cholecystectomy History of appendectomy Family History Father No problems noted. Mother No problems noted. Social History Housing: House Alcohol intake: current Alcohol intake frequency: a few times a month Patient Tobacco Use Status: Former Tobacco user Tobacco use type: Cigarette Cigarette Packs Per Day: 0.25 Cigarettes Per Day: 3 Years Smoked: 30 e-Cigarette/Vaping Use: Never Used service: No Current occupational status: employed Cognitive needs: No Hearing needs: Yes Vision needs: Yes Questionnaire PHQ-9 Over the last 2 weeks, how often have you been bothered by any of the following problems? 1. Little interest or pleasure in doing things: not at all 2. Feeling down, depressed, or hopeless: not at all 3. Trouble falling or staying asleep, or sleeping too much: not at all 4. Feeling tired or having little energy: not at all 5. Poor appetite or overeating: not at all 6. Feeling bad about yourself - or that you are a failure or have let yourself or your family down: not at all 7. Trouble concentrating on things, such as reading the newspaper or watching television: not at all 8. Moving or speaking so slowly that other people could have noticed. Or the opposite - being so fidgety or restless that you have been moving around a lot more than usual: not at all 9. Thoughts that you would be better off or of hurting yourself in some way: not at all Total score: 0 Depression Screening Interpretation: Negative Depression Screening Done: Yes 79602 - PHQ-9 Billing: Yes Source: Developed by Drs. Slim Recinos, Zahra Carroll, Myron Beckford and colleagues, with an educational kelby from [employer]. Thrive Questionnaire Date Thrive assessed: 02/21/24 I am a: Patient What is your living situation today?: I have a steady place to live Within the past 12 months, did the food you bought not last and you didn't have the money to get more?: Never true Within the past 12 months, did you worry whether your food would run out before you got money to buy more?: Never true Do you have trouble paying for medicines?: No Do you have trouble getting transportation to medical appointments?: No Do you have trouble paying your heating and electricity bill?: No Do you have trouble taking care of your child, family member or friend?: No Do you have trouble with day-to-day activities such as bathing, preparing meals, shopping, managing finances, etc.?: No Are you currently unemployed and looking for a job?: No Are you interested in more education?: No Please select the resources that you would like help with: None Currently or been in a relationship where the following occur: No concerns reported THRIVE Score: 0 AUDIT C Alcohol Use Questionnaire (AUDIT-C) 2. How many drinks containing alcohol do you have on a typical day when you are drinking?: 1 or 2 Total Score: 0 KAY-7 AMB Questionnaire KAY-7 Date KAY - 7 assessed: 02/21/24 Feeling nervous, anxious, or on edge: 0 = Not at all Not being able to stop or control worryin = Not at all Worrying too much about different things: 0 = Not at all Trouble relaxin = Not at all Being so restless that it is hard to sit still: 0 = Not at all Becoming easily annoyed or irritable: 0 = Not at all Feeling afraid as if something awful might happen: 0 = Not at all Total KAY-7 score (0-4 normal; 5-9 mild; 10-14 moderate; 15-21 severe): 0 Source: Developed by Drs. Slim Recinos, Zahra Carroll, Myron Beckford and colleagues, with an educational kelby from [employer]. KAY-7 Assessment Billing KAY-7 Assessment Tool: KAY-7 Assessment 85703 Review of Systems Const All systems reviewed & are unremarkable except as noted in HPI and below Eyes Reports no additional complaints ENT Reports no additional complaints Card Reports no additional complaints Resp Reports no additional complaints GI Reports no additional complaints Reports no additional complaints Physical exam (Primary Care) Vital Signs: Last Vital Signs Pulse 49 L 02/21/24 09:29 BP 116/64 02/21/24 09:29 Pulse Ox 99 02/21/24 09:29 Oxygen Delivery Method Room Air 02/21/24 09:29 BMI result Body Mass Index 25.8 Tobacco/Smoking Status: Tobacco use Status Tobacco use date assessed 02/21/24 02/21/24 09:33 Patient Tobacco Use Status Former Tobacco user 02/21/24 09:33 Tobacco use type Cigarette 02/21/24 09:33 e-Cigarette/Vaping Use Never Used 02/21/24 09:33 PHQ-9: PHQ-9 Score PHQ-9: Total score 0 02/21/24 09:35 Depression Screening Interpretation: Negative Thrive Assessment: Date of Thrive Assessment Date Thrive assessed 02/21/24 02/21/24 09:35 Currently or been in a relationship where the following occur: No concerns reported Const General: no acute distress HENMT Head: Yes normal to inspection Face and sinus: Yes normal facial exam Throat: Yes posterior oropharynx normal Resp Effort & Inspection: normal respiratory effort Auscultation: clear to auscultation bilaterally Cardio Rhythm: regular rhythm Heart sounds: S1 normal heart sound present and S2 normal heart sound present GI Inspection: Yes normal to inspection Palpation (GI): Soft to palpation Assessment and Plan Assessment & Plan (1) Ischemic cardiomyopathy: Comment: cardiogenic shock after NSTEMI 09/24, Echo EF 15-20%. Akinesis of apex, distal, anterioseptal, lateral and anterior davis, moderate MR, repeat ECHO nl EF 04/26, f/u Cardiology [facility] Code(s): I25.5 - Ischemic cardiomyopathy Plan: cont meds, f/u with cardiology annually (2) CAD (coronary artery disease): Comment: S/P NSTEMI LMCA STEPHANIE 09/[address] [facility] [address] Jiang Code(s): I25.10 - Atherosclerotic heart disease of [place] coronary artery without angina pectoris Plan: cont meds (3) Osteopenia: Comment: DEXA 01/23, T SCORE -2.3, Code(s): M85.80 - Other specified disorders of bone density and structure, unspecified site Plan: cont vit D , regular exercise Medications: Discontinued ticagrelor Discontinued Reason: Doctor's Order 90 mg PO BID 180 tabs 3RF Coding Level of Care Code Est Pt Level 4 (29110) Diagnoses Ischemic cardiomyopathy I25.5 CAD (coronary artery disease) I25.10 Osteopenia M85.80 Additional Codes KAY-7 Assessment Billing - KAY-7 Assessment Tool: KAY-7 Assessment 01303 ([id number])
== END 2024-02-21 10:13 | disposition home or self-care (01) ==
PROVIDERS: PCP Internal Medicine; Visit Provider Internal Medicine
DX: I25.5 Ischemic cardiomyopathy (principal); I25.10 Atherosclerotic heart disease of native coronary artery without angina pectoris; M85.80 Other specified disorders of bone density and structure, unspecified site
CPT/HCPCS: 99214

== ENCOUNTER 2024-06-16 11:38 | Outpatient (AMB) | payer OTHER, SELFPAY ==
[2023-03-03 07:13] VITALS: BP 100/54; BP 126/54; BP 94/66; BMI 25.7
--- NOTE | 2024-06-16 11:41 | MHC.OFFWIV ---
Intake Vital Signs 06/16/24 11:42 BP 126/70 Blood Pressure Location Rt brachial Position Sitting Pulse 72 Pulse Source Pulse Oximeter Pulse Oximetry (%) 97 Oxygen Delivery Method Room Air Intake Visit Reasons: EP pain on LT forearm Intake Note: Patient here for left forearm pain after a fall today. Patient Tobacco Use Status: Former Tobacco user Allergies No Known Allergies [No Known Allergies*] Allergy (Verified 06/16/24 11:42) HPI HPI Comments History of Present Illness Details This is a 74-year-old female with a past medical history of coronary artery disease, hypertension, hyperlipidemia and gastroesophageal reflux disease presenting for evaluation of left forearm pain. Patient states that she tripped over the strap of her pocket book this morning and fell to the ground onto her left side. She denies any head injury, loss of consciousness and is not on any blood thinning medications. Patient is having pain in her proximal left forearm. She has not taken any medication for treatment of her discomfort. [facility] Medical History Annual physical exam Vitamin D deficiency HTN (hypertension) Nephrolithiasis GERD (gastroesophageal reflux disease) Osteoporosis Glaucoma SVT (supraventricular tachycardia) Hyperlipidemia Hyperthyroidism Hearing loss Surgical History H/O colonoscopy Hx of cholecystectomy History of appendectomy Family History Father No problems noted. Mother No problems noted. Social History Housing: House Alcohol intake: current Alcohol intake frequency: a few times a month Patient Tobacco Use Status: Former Tobacco user Tobacco use type: Cigarette Cigarette Packs Per Day: 0.25 Cigarettes Per Day: 3 Years Smoked: 30 e-Cigarette/Vaping Use: Never Used service: No Current occupational status: employed Cognitive needs: No Hearing needs: Yes Vision needs: Yes Review of Systems Const All systems reviewed & are unremarkable except as noted in HPI and below Reports no additional complaints Eyes Reports no additional complaints ENT Reports no additional complaints Card Reports no additional complaints Resp Reports no additional complaints GI Reports no additional complaints Reports no additional complaints Musc Reports no additional complaints and Reports radiating pain into limb (left forearm) Skin/Breast Reports system reviewed and no additional complaints, except as documented Neuro Reports no additional complaints Psych Reports no additional complaints Endo Reports no additional complaints Julian/Lymph Reports no additional complaints Aller/Immun Reports no additional complaints Physical Exam Vital Signs: Last Vital Signs Pulse 72 06/16/24 11:42 BP 126/70 06/16/24 11:42 Pulse Ox 97 06/16/24 11:42 Oxygen Delivery Method Room Air 06/16/24 11:42 Const General: cooperative, healthy appearing, comfortable, no acute distress, well developed, alert, awake and Physically active Nutritional Appearance: average body habitus Orientation/consciousness: patient oriented x3 Limitations: no limitations Back/Spine/Pelvis Cervical Spine: normal cervical lordosis, cervical ROM normal, No cervical muscular tenderness, No Cervical spine tenderness and No cervical ROM abnormal Skin General skin exam: no rashes or lesions noted Neuro General: patient oriented x3 Extrem Left upper extremity: full ROM, normal capillary refill, elbow/forearm (pain to palpation lateral left epicondyle and proximal forearm) Details: other (ROM left olecranon and left wrist intact; contact centre supervisor strength equal bilaterally) and hand Details: normal to inspection, normal capillary refill, neuromotor exam normal, neuromotor exam abnormal, neurosensory exam normal and no swelling; no cyanosis, no edema and joint enlargement noted Psych Appearance: grossly normal Mental Status: mental status grossly normal Insight: Good insight present (Psych) Judgement: Good judgement present (Psych) Results Reviewed Results Reviewed: No acute fx. imaging left radius/ulna. Assessment & Plan Assessment & Plan (1) Contusion of left forearm, initial encounter: Comment: No acute fracture noted on imaging. Final reading is pending at this time. Code(s): S50.12XA - Contusion of left forearm, initial encounter Plan: Naprosyn b.i.d. times 7-10 days. Orders: Orders XR forearm LT 2V Today M79.639 - Pain in unspecified forearm Medications: New naproxen (Naprosyn) 500 mg PO BID 20 tabs 0RF Coding Level of Care Code Est Pt Level 3 (63857) Diagnoses Contusion of left forearm, initial encounter S50.12XA Time Spent (min) 20
[2024-06-16 11:42] VITALS: BP 126/70; PULSE 72; O2SAT 97
== END 2024-06-16 13:08 | disposition home or self-care (01) ==
PROVIDERS: PCP Internal Medicine; Visit Provider Physician Assistant
DX: S50.12XA Contusion of left forearm, initial encounter (principal)

== ENCOUNTER → 2024-07-28 08:21 | Outpatient (BNVA) | payer OTHER, SELFPAY ==
[2023-03-03 07:13] VITALS: BP 100/54; BP 126/54; BP 94/66; BMI 25.7
== END ==
PROVIDERS: PCP Internal Medicine; Visit Provider Internal Medicine
DX: Z00.00 Encounter for general adult medical examination without abnormal findings (principal); M85.80 Other specified disorders of bone density and structure, unspecified site; I25.5 Ischemic cardiomyopathy; I10 Essential (primary) hypertension; E78.5 Hyperlipidemia, unspecified; E55.9 Vitamin D deficiency, unspecified; Z87.891 Personal history of nicotine dependence
CPT/HCPCS: 96127; 99397

== ENCOUNTER 2024-08-15 14:54 | Outpatient (REF) | payer SELFPAY ==
[2023-03-03 07:13] VITALS: BP 100/54; BP 126/54; BP 94/66; BMI 25.7
== END 2024-08-15 14:55 | disposition home or self-care (01) ==
LOC: HO.HAP 14:54
PROVIDERS: Visit Provider Internal Medicine
DX: Z13.89 Encounter for screening for other disorder (principal)

== ENCOUNTER 2024-08-16 14:48 | Outpatient (REF) | payer SELFPAY ==
[2023-03-03 07:13] VITALS: BP 100/54; BP 126/54; BP 94/66; BMI 25.7
--- OUTSIDE RECORDS SUMMARY | 2024-08-16 16:02 | XMS_ITS | Clinical Summary ---
Author Organization [facility] Address [address] [place] [address] Care Team Providers Care Final Assembler Name Role Phone Hema Roach MD Primary Care Provider [phone] Medications Medication Sig Dispensed Refills Start Date End Date Status timolol (TIMOPTIC) 0.25 % ophthalmic solution 1 drop 2 (two) times a day. 0 Active aspirin 81 MG chewable tablet Chew 81 mg by mouth daily. 0 Active rosuvastatin (CRESTOR) tablet 10 mg Take 10 mg by mouth daily. 0 Active latanoprost (XALATAN) 0.005 % ophthalmic solution 1 drop every night at bedtime. 0 Active Active Problems Problem Noted Date Diagnosed Date Postural dizziness with presyncope 08/26/2016 History of supraventricular tachycardia 08/26/19 17 Hyperlipemia Social History Tobacco Use Types Packs/Day Years Used Date Smoking Tobacco: Never Assessed Smokeless Tobacco: Never Alcohol Use Standard Drinks/Week Comments No 0 (1 standard drink = 0.6 oz pur e alcohol) Sex and Gender Information Value Date Recorded Sex Assigned at Not on file Gender Identity Not on file Sexual Orientation Not on file Last Filed Vital Signs Vital Sign Reading Time Taken Comments Blood Pressure 160/72 08/26/2016 10:36 PM EST Pulse 88 08/26/2016 10:36 PM EST Temperature 36.7 ??C (98 ??F) 08/26/2016 10:36 PM EST Respiratory Rate 18 08/26/2016 10:36 PM EST Oxygen Saturation 98% 08/26/2016 10:36 PM EST Inhaled Oxygen Concentration - - Weight 65.8 kg (145 lb) 08/26/2016 7:32 PM EST Height 160 cm (5' 3 ) 08/26/2016 7:32 PM EST Body Mass Index 25.69 08/26/2016 7:32 PM EST Plan of Treatment Not on file Care Teams Final Assembler Relationship Specialty Start Date End Date Hema Roach MD [address] [place] [address] PCP - General Family Medicine 08/26/16
== END 2024-08-16 14:49 | disposition home or self-care (01) ==
LOC: HO.SH 14:48
PROVIDERS: Visit Provider Internal Medicine
DX: Z01.118 Encounter for examination of ears and hearing with other abnormal findings (principal); Z46.1 Encounter for fitting and adjustment of hearing aid; H90.3 Sensorineural hearing loss, bilateral
CPT/HCPCS: V5299

== ENCOUNTER 2025-01-19 06:11 | Outpatient (REF) | payer OTHER, SELFPAY ==
[2023-03-03 07:13] VITALS: BP 100/54; BP 126/54; BP 94/66; BMI 25.7
--- OUTSIDE RECORDS SUMMARY | 2025-01-19 06:13 | XMS_ITS | Clinical Summary ---
Author Organization [facility] Address [address] [place] [address] Care Team Providers Care Packing Supervisor Name Role Phone Hema Roach MD Primary Care Provider [phone] Medications Medication Sig Dispensed Refills Start Date [...] 88 08/26/2016 10:36 PM EST Temperature 36.7 C (98 F) 08/26/2016 10:36 PM EST Respiratory Rate 18 08/26/2016 10:36 PM EST Oxygen Saturation 98% 08/26/2016 10:36 PM EST Inhaled Oxygen Concentration - - Weight 65.8 kg (145 lb) 08/26/2016 7:32 PM EST Height 160 cm (5' 3 ) 08/26/2016 7:32 PM EST Body Mass Index 25.69 08/26/2016 7:32 PM EST Plan of Treatment Not on file Care Teams Packing Supervisor Relationship Specialty Start Date End Date Hema Roach MD [address] [place] [address] PCP - General Family Medicine 08/26/16
--- OUTSIDE RECORDS SUMMARY | 2025-01-19 06:13 | XMS_ITS | Clinical Summary ---
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 Name Role Phone Pastora Sargent MD Primary Care Provider [phone] Encounters Date Type Department Care Team Description 11/10/2024 7:07 AM EDT - 11/10/2024 11:59 PM EDT [facility] [address] [address] Encounter for screening mammogram for breast cancer Discharge Disposition: Home or Self Care from Last 3 Months Family History Medical History Relation Name Comments Breast cancer Paternal Grandmother Relation Name Status Comments Paternal Grandmother Social History Tobacco Use Types Packs/Day Years Used Date Smoking Tobacco: Never Assessed Comments No Sex and Gender Information Value Date Recorded Sex Assigned at Not on file Legal Sex Female 6:29 PM EST Gender Identity Not on file Sexual Orientation Not on file Obstetrics History Last Filed Vital Signs Vital Sign Reading Time Taken Comments Blood Pressure - - Pulse - - Temperature - - Respiratory Rate - - Oxygen Saturation - - Inhaled Oxygen Concentration - - Weight 63.5 kg (140 lb) 11/10/2024 7:17 AM EDT Height 157.5 cm (5' 2 ) 11/10/2024 7:17 AM EDT Body Mass Index 25.61 11/10/2024 7:17 AM EDT Plan of Treatment Health Maintenance Due Date Last Done Comments Zoster Vaccines (1 of 2) 1998 DTaP,Tdap,and Td Vaccines (2 - Td or Tdap) 09/17/2018 09/17/2008 Cholesterol Screening (Lipid Panel) 06/06/2022 Depression Screening 06/06/2022 Falls Risk Assessment 06/06/2022 Hepatitis C Screening 06/06/2022 Medicare Annual Wellness Visit 06/06/2022 Osteoporosis Screening (Bone Density Screening) 06/06/2022 Social Influencers of Health Screening 06/06/2022 RSV Immunization Adult Patients (1 - 1-dose 75+ series) 2023 COVID-19 Vaccine ( season) 2024 04/26/2024, 06/12/2023, 05/03/2022, Additional history exists Influenza Vaccine (#1) 2025 , 05/02/2023, 05/03/2022, Additional history exists Pneumococcal Vaccine: 50+ Years Completed 12/23/2015, 12/13/2013 Breast Cancer Screening Discontinued 11/11/19, 11/09/2023, 11/06/2022, Additional history exists HIB Vaccines Aged Out No longer eligi ble based on patient's age to complete this topic HPV Vaccines Aged Out No longer eligi ble based on patient's age to complete this topic Hepatitis A Vaccines Aged Out No long er eligible based on patient's age to complete this topic Hepatitis B Vaccines Aged Out No long er eligible based on patient's age to complete this topic IPV Vaccines Aged Out No longer eligi ble based on patient's age to complete this topic MMR Vaccines Aged Out No longer eligi ble based on patient's age to complete this topic Meningococcal ACWY Vaccine Aged Out N o longer eligible based on patient's age to complete this topic Meningococcal B Vaccine Aged Out No l onger eligible based on patient's age to complete this topic RSV Immunization Patients Under 20 months Aged Out No longer eligible based on patient's age to complete this topic Varicella Vaccines Aged Out No longer eligible based on patient's age to complete this topic Procedures Procedure Name Priority Date/Time Associated Diagnosis Comments MG MAMMO DIGITAL SCREENING W CAMRON BILAT Routine 11/10/2024 7:23 AM EDT Encounter for screening mammogram for breast cancer from Last 3 Months Results * MG Mammo Digital Screening w Camron bilat (11/10/2024 7:23 AM EDT) Anatomical Region Laterality Modality Breast Bilateral Mammography 11/10/2024 7:39 AM EDT Impressions 11/10/2024 7:42 AM EDT No mammographic evidence of malignancy. A negative mammogram in the presence of a clinically suspicious palpable abnormality does not preclude the possibility of malignancy or alter the indications for biopsy. PQRI CPT II 3341F Code 02253, 09910 PQRI 225 CPT II 7025F TISSUE DENSITY: There are scattered areas of fibroglandular density. (BI-RADS category B) IMPRESSION: Benign. BI-RADS CATEGORY: 1 - NEGATIVE RECOMMENDATION: Screening bilateral mammogram is recommended in 1 year. Mammo Location: [facility], [address] [place] [address] -------- FINAL REPORT -------- Dictated By: Jordi Osman Dictated Date: 11/10/2024 07:39 ET Assigned Physician: Jordi Osman Reviewed and Electronically Signed By: Jordi Osman Signed Date: 11/10/2024 07:42 ET Workstation ID: [id number] Transcribed By: Self Edit Transcribed Date: 11/10/2024 07:39 ET Narrative 11/10/2024 7:42 AM EDT CLINICAL: The patient is a 74 years Female presenting for routine screening mammography. COMPARISON: Most recently 11/09/2023 and most remotely 08/12/2017. TECHNIQUE: Full-field digital mammography of the breasts bilaterally consisting of tomosynthesis in MLO and CC projection is performed in the [employer] 2000-D unit. Computer aided detection utilizing the iCAD system was utilized. FINDINGS: The breasts are again seen to be composed of a combination of fatty and fibroglandular elements. There is no cluster of microcalcifications, mass, or area of architectural distortion. There is no skin thickening or nipple retraction. Procedure Note Jordi Osman MD - 11/10/2024 CLINICAL: The patient is a 74 years Female presenting for routinescreening mammography. COMPARISON: Most recently 11/09/2023 and most remotely 08/12/2017. TECHNIQUE: Full-field digital mammography of the breasts bilaterallyconsisting of tomosynthesis in MLO and CC projection is performed in the[employer] 2000-D unit. Computer aided detection utilizing the iCADsystem was utilized. FINDINGS: The breasts are again seen to be composed of a combination offatty and fibroglandular elements. There is no cluster ofmicrocalcifications, mass, or area of architectural distortion. There isno skin thickening or nipple retraction. IMPRESSION: No mammographic evidence of malignancy. A negative mammogram in the presence of a clinically suspicious palpableabnormality does not preclude the possibility of malignancy or alter theindications for biopsy. PQRI CPT II 3341F Code 56329, 34740 PQRI 225 CPT II 7025F TISSUE DENSITY: There are scattered areas of fibroglandular density.(BI-RADS category B) IMPRESSION: Benign. BI-RADS CATEGORY: 1 - NEGATIVE RECOMMENDATION: Screening bilateral mammogram is recommended in 1 year. Mammo Location: [facility], [facility], [address] [place] [address] -------- FINAL REPORT -------- Dictated By: Jordi Osman Dictated Date: 11/10/2024 07:39 ET Assigned Physician: Jordi Osman Reviewed and Electronically Signed By: Jordi Osman Signed Date: 11/10/2024 07:42 ET Workstation ID: [id number] Transcribed By: Self Edit Transcribed Date: 11/10/2024 07:39 ET us Self Referral Sppl IMG BI PROCEDURES Final Resul t from Last 3 Months Insurance [employer] [facility] MEDIC[facility] Member Subscriber Plan / Payer (Ef fective 2024-Present) Name:Bel Leo Relation to Subscriber:Self Name:Bel Leo Payer ID:[id number] Group ID:Not on file Type:Not on file Address: [address] [place] [id number] Care Teams Beef Cattle Specialist Relationship Specialty Start Date End Date Pastora Sargent MD [address] [place] [address] PCP - General Internal Medicine 11/10/24
[2025-01-19 06:23] LABS: MANUAL DIFF FLAG NO
[2025-01-19 07:09] LABS: Hematocrit 38.8 % (37.0-47.0); Hemoglobin 12.8 g/dl (12.0-16.0); Imm Gran Abs Auto 0.01 X10*3/uL (0.00-0.03); Imm Gran Pct Auto 0.2 % (0.0-0.4); Lymphocytes Absolute Auto 1.7 X10*3/uL (1.2-4.9); Mean Corpuscular HGB Conc 33.0 g/dl (31.0-35.0); Mean Corpuscular Hemoglobin 29.1 pg (27.0-33.0); Mean Corpuscular Volume 88.2 fL (80.0-98.0); NRBC Abs Auto 0.000 X10*3/uL (0.0-0.012); NRBC Pct Auto 0.0 /100WBC (0.0-0.2); Platelet Count 201 X10*3/uL (160-400); Red Blood Count 4.40 X10*6/uL (4.20-5.50); White Blood Count 5.1 X10*3/uL (4.8-10.8)
[2025-01-19 07:34] LABS: Alanine Aminotransferase 21 U/L (0-31); Albumin Level 3.9 g/dL (3.5-5.0); Alkaline Phosphatase 106 U/L (39-117); Anion Gap 11 (12-20); Aspartate Amino Transferase 26 U/L (5-31); Blood Urea Nitrogen 15 mg/dL (9-16); Calcium 9.0 mg/dL (8.4-10.2); Carbon Dioxide 25 mmol/L (22-29); Chloride 106 mmol/L (96-108); Cholesterol 105 mg/dL (<200); Estimated Glomerular Filt Rate > 60; HDL Cholesterol 42 mg/dL (>40); Potassium 4.3 mmol/L (3.3-5.1); Sodium 138 mmol/L (135-145); Total Protein 6.8 g/dL (6.5-8.0); Triglycerides 81 mg/dL (<150)
[2025-01-19 08:37] LABS: Free T4 (Free Thyroxine) 1.59 ng/dL (0.71-1.85)
== END 2025-01-19 06:12 | disposition home or self-care (01) ==
LOC: HO.LAB 06:11
PROVIDERS: PCP Internal Medicine; Visit Provider Internal Medicine
DX: I10 Essential (primary) hypertension (principal); E78.5 Hyperlipidemia, unspecified; E55.9 Vitamin D deficiency, unspecified; Z00.00 Encounter for general adult medical examination without abnormal findings
CPT/HCPCS: 36415; 80053; 80061; 82306; 84439; 84443; 85025

== ENCOUNTER 2025-01-24 07:54 | Outpatient (REF) | payer OTHER, SELFPAY ==
[2023-03-03 07:13] VITALS: BP 100/54; BP 126/54; BP 94/66; BMI 25.7
--- NOTE | ~2025-01-24 | MM_ITS ---
EXAMINATION: DXA BONE DENSITY AXIAL HISTORY: M85.80 - Other specified disorders of bone density and structure, unspecified... TECHNIQUE: Procurify Dual energy absorptiometry (DEXA) of the lumbar spine, total left hip, and femoral neck was performed. COMPARISON: Comparison is made with the prior examination dated 01/02/2022. FINDINGS: The bone mineral density of the lumbar spine is 0.993 g/cm2, corresponding to a T-score of -1.4, and a Z-score of 0.4. This is indicative of osteopenia. This represents a BMD change of 1.0% compared to the prior exam. This is not statistically significant. The bone mineral density of the left total hip is 0.780 g/cm2, corresponding to a T-score of -1.8, and a Z-score of 0.1. This is indicative of osteopenia. This represents a BMD change of -5.1% compared to the prior exam. This is statistically significant. The bone mineral density of the left femoral neck is 0.682 g/cm2, corresponding to a T-score of -2.6, and a Z-score of -0.5. This is indicative of osteoporosis. This represents a BMD change of -4.3% compared to the prior exam. FRACTURE RISK: The FRAX index suggests a ten year probability of major osteoporotic fracture of 18.6%, and of hip fracture 6.3%. MM/XR DEXA axial skeleton IMPRESSION: Based on bone mineral density, and according to World Health Organization (WHO) criteria, the diagnosis is consistent with osteoporosis. Statistically, 68% of repeat scans fall within 1 SD (+/- 0.010 g/cm2 for AP spine L1-L4) and 1 SD (+/- 0.012 g/cm2 for femur total) FRAX is a trademark of the [employer]'s [facility] Metabolic Bone Disease, a World Health Organization (WHO) Collaborating Center. Electronically signed by: Slim Mcdonnell MD 01/24/2025 09:41 AM EDT
--- OUTSIDE RECORDS SUMMARY | 2025-01-24 07:57 | XMS_ITS | Clinical Summary ---
Author Organization [facility] Address [address] [place] [address] Phone Care Team Providers Care [employer] Principal Name Role Phone Pastora Sargent MD Primary Care Provider [phone] Encounters Date Type Department Care Team Description 11/10/2024 7:07 AM EDT - 11/10/2024 11:59 PM EDT [facility] at [address] [address] Encounter for screening mammogram for [...] 09/17/2018 09/17/2008 Cholesterol Screening (Lipid Panel) 06/06/2022 Falls Risk Assessment 06/06/2022 Hepatitis C Screening 06/06/2022 Medicare Annual Wellness Visit 06/06/2022 Osteoporosis Screening (Bone Density Screening) 06/06/2022 Social Influencers of Health Screening 06/06/2022 RSV Immunization Adult Patients (1 - 1-dose 75+ series) 2023 Depression Screening 07/05/2024 COVID-19 Vaccine ( season) 2024 04/26/2024, 06/12/2023, [...] for biopsy. PQRI CPT II 3341F Code 00999, 91543 PQRI 225 CPT II 7025F TISSUE DENSITY: There are scattered areas of fibroglandular density. (BI-RADS category B) IMPRESSION: Benign. BI-RADS CATEGORY: 1 - NEGATIVE RECOMMENDATION: Screening bilateral mammogram is recommended in 1 year. Mammo Location: [facility], [facility], [address] [place] [address] -------- FINAL REPORT -------- Dictated By: Jordi Osman Dictated Date: 11/10/2024 07:39 ET Assigned Physician: Jordi Osman Reviewed and Electronically Signed By: Jordi Osman Signed Date: 11/10/2024 07:42 ET Workstation ID: [id number] Transcribed By: Self Edit Transcribed Date: 11/10/2024 07:39 ET Narrative 11/10/2024 7:42 AM EDT CLINICAL: The patient is a 74 years Female presenting for routine screening mammography. COMPARISON: Most recently 11/09/2023 and most remotely 08/12/2017. TECHNIQUE: Full-field digital mammography of the breasts bilaterally consisting of tomosynthesis in MLO and CC projection is performed in the [employer] 2000-D unit. Computer aided detection utilizing the [...] MLO and CC projection is performed in the[employer] 2000-D unit. Computer aided detection utilizing the [...] for biopsy. PQRI CPT II 3341F Code 84548, 26714 PQRI 225 CPT II 7025F TISSUE DENSITY: There are scattered areas of fibroglandular density.(BI-RADS category B) IMPRESSION: Benign. BI-RADS CATEGORY: 1 - NEGATIVE RECOMMENDATION: Screening bilateral mammogram is recommended in 1 year. Mammo Location: [facility], [place] [facility], [address] [place] [address] -------- FINAL REPORT -------- Dictated By: Jordi Osman Dictated Date: 11/10/2024 07:39 ET Assigned Physician: Jordi Osman Reviewed and Electronically Signed By: Jordi Osman Signed Date: 11/10/2024 07:42 ET Workstation ID: [id number] Transcribed By: Self Edit Transcribed Date: 11/10/2024 07:39 ET us Self Referral Sppl IMG BI PROCEDURES Final Resul t from Last 3 Months Insurance [employer] [facility] MEDIC[facility] Member Subscriber Plan / Payer (Ef fective 2024-Present) Name:Bel Leo Relation to Subscriber:Self Name:Bel Leo Payer ID:[id number] Group ID:Not on file Type:Not on file Address: [address] [place] [phone] Care Teams [employer] Principal Relationship Specialty Start Date End Date Pastora Sargent MD [address] [place] [address] PCP - General Internal Medicine 11/10/24
--- OUTSIDE RECORDS SUMMARY | 2025-01-24 07:57 | XMS_ITS | Clinical Summary ---
Author Organization [facility] Address [address] [place] [address] Care Team Providers Care Stogy Roller Name Role Phone Hema Roach MD Primary Care Provider [phone] Medications Medication Sig Dispensed Refills Start Date [...] of Treatment Not on file Care Teams Stogy Roller Relationship Specialty Start Date End Date Hema Roach MD [address] [place] [address] PCP - General Family Medicine 08/26/16
== END 2025-01-24 07:55 | disposition home or self-care (01) ==
LOC: HO.MAMMO 07:54
PROVIDERS: PCP Internal Medicine; Visit Provider Internal Medicine
DX: Z13.820 Encounter for screening for osteoporosis (principal); Z78.0 Asymptomatic menopausal state; M85.80 Other specified disorders of bone density and structure, unspecified site
CPT/HCPCS: 77080

== ENCOUNTER → 2025-01-24 08:15 | Outpatient (BNV) | payer OTHER, SELFPAY ==
[2023-03-03 07:13] VITALS: BP 100/54; BP 126/54; BP 94/66; BMI 25.7
== END ==
PROVIDERS: PCP Internal Medicine; Visit Provider Radiology Diagnostic Radiology
DX: E28.39 Other primary ovarian failure (principal)
CPT/HCPCS: 77080

== ENCOUNTER 2025-01-26 08:47 | Outpatient (AMB) | payer OTHER, SELFPAY ==
[2023-03-03 07:13] VITALS: BP 100/54; BP 126/54; BP 94/66; BMI 25.7
--- NOTE | 2025-01-26 08:49 | MHC.PC.OV ---
Intake Visit Reasons: 6m f/u Allergies No Known Allergies (No Known Allergies*) Allergy (Verified 07/28/24 08:25) Tobacco use date assessed: 07/28/24 Dental Screening Dental Screen Date: 07/28/24 [facility] Medical History Annual physical exam Vitamin D deficiency HTN (hypertension) Nephrolithiasis GERD (gastroesophageal reflux disease) Osteoporosis Glaucoma SVT (supraventricular tachycardia) Hyperlipidemia Hyperthyroidism Hearing loss Surgical History H/O colonoscopy Hx of cholecystectomy History of appendectomy Family History Father No problems noted. Mother No problems noted. Social History Housing: House Alcohol intake: current Alcohol intake frequency: a few times a month Patient Tobacco Use Status: Former Tobacco user Tobacco use type: Cigarette Cigarette Packs Per Day: 0.25 Cigarettes Per Day: 3 Years Smoked: 30 e-Cigarette/Vaping Use: Never Used service: No Current occupational status: employed Cognitive needs: No Hearing needs: Yes Vision needs: Yes Questionnaire Thrive Questionnaire Date Thrive assessed: 07/21/24 I am a: Patient What is your living situation today?: I have a steady place to live Within the past 12 months, did the food you bought not last and you didn't have the money to get more?: Never true Within the past 12 months, did you worry whether your food would run out before you got money to buy more?: Never true Do you have trouble paying for medicines?: No Do you have trouble getting transportation to medical appointments?: No Do you have trouble paying your heating and electricity bill?: No Do you have trouble taking care of your child, family member or friend?: No Do you have trouble with day-to-day activities such as bathing, preparing meals, shopping, managing finances, etc.?: No Are you currently unemployed and looking for a job?: No Are you interested in more education?: No Please select the resources that you would like help with: None Currently or been in a relationship where the following occur: No concerns reported THRIVE Score: 0 KAY-7 AMB Questionnaire KAY-7 Date KAY - 7 assessed: 07/28/24 Source: Developed by Drs. Slim Recinos, Zahra Carroll, Myron Beckford and colleagues, with an educational kelby from [employer] Physical exam (Primary Care) Tobacco/Smoking Status: Tobacco use Status Tobacco use date assessed 07/28/24 07/28/24 08:28 Patient Tobacco Use Status Former Tobacco user 07/28/24 08:28 Tobacco use type Cigarette 07/28/24 08:28 e-Cigarette/Vaping Use Never Used 07/28/24 08:28 Thrive Assessment: Date of Thrive Assessment Date Thrive assessed 07/21/24 01/26/25 08:48 Currently or been in a relationship where the following occur: No concerns reported Coding
--- NOTE | 2025-01-26 08:50 | MHC.PC.OV ---
Vital Signs 01/26/25 08:51 Height 5 ft 2 in Weight 140 lb BMI 25.6 BP 120/60 Blood Pressure Location Lt brachial Position Sitting Respiration 16 Pulse 58 Pulse Source Pulse Oximeter Temp 98.3 F Temp Source Oral Pulse Oximetry (%) 97 Oxygen Delivery Method Room Air Intake Visit Reasons: 6m f/u Bark Tanner Required: No Accompanied by: Self / Same As Patient Allergies No Known Allergies (No Known Allergies*) Allergy (Verified 01/26/25 08:52) Medication List - Last Reconciled 01/26/25 by Pastora Sargent MD aspirin 81 mg PO DAILY atorvastatin 80 mg PO DAILY flu vacc [id number](65yr up)-PF mL IM latanoprost 0.005% 1 drp ophthalmic (eye) BEDTIME metoprolol tartrate 12.5 mg PO DAILY omeprazole 20 mg PO DAILY sacubitril-valsartan 49-51 mg (Entresto) 1 tab PO BID timolol maleate 0.5% 1 drp ophthalmic (eye) BID Tobacco use date assessed: 01/26/25 Fall risk assessment: No Falls in past year Last assessed Fall Risk: 01/26/25 Dental Screening Dental Screen Date: 01/26/25 Did you have a dental visit in the last 12 months?: Yes Did you have a dental problem in the last 6 months where you did not have access to dental care?: No Was dental information given to patient?: Patient has dentist HPI 6m f/u HPI Details Patient presents for the follow-up of hyperlipidemia history of heart failure with recovered ejection fraction on Entresto, coronary artery disease established with [facility] Medical History (Updated 01/26/25 @ 15:56 by Pastora Sargent MD) Osteoporosis CAD (coronary artery disease) Ischemic cardiomyopathy Hyperthyroidism Annual physical exam Vitamin D deficiency HTN (hypertension) Nephrolithiasis GERD (gastroesophageal reflux disease) Glaucoma SVT (supraventricular tachycardia) Hyperlipidemia Hearing loss Surgical History H/O colonoscopy Hx of cholecystectomy History of appendectomy Family History Father No problems noted. Mother No problems noted. Social History Housing: House Alcohol intake: current Alcohol intake frequency: a few times a month Patient Tobacco Use Status: Former Tobacco user Tobacco use type: Cigarette Cigarette Packs Per Day: 0.25 Cigarettes Per Day: 3 Years Smoked: 30 Packs Per Year: 8 Packs per year/per ci.50 e-Cigarette/Vaping Use: Never Used service: No Current occupational status: employed Cognitive needs: No Hearing needs: Yes Vision needs: Yes Questionnaire PHQ-9 Over the last 2 weeks, how often have you been bothered by any of the following problems? 1. Little interest or pleasure in doing things: not at all 2. Feeling down, depressed, or hopeless: not at all 3. Trouble falling or staying asleep, or sleeping too much: not at all 4. Feeling tired or having little energy: not at all 5. Poor appetite or overeating: not at all 6. Feeling bad about yourself - or that you are a failure or have let yourself or your family down: not at all 7. Trouble concentrating on things, such as reading the newspaper or watching television: not at all 8. Moving or speaking so slowly that other people could have noticed. Or the opposite - being so fidgety or restless that you have been moving around a lot more than usual: not at all 9. Thoughts that you would be better off or of hurting yourself in some way: not at all Total score: 0 Depression Screening Interpretation: Negative Depression Screening Done: Yes 31974 - PHQ-9 Billing: Yes Source: Developed by Drs. Slim Recinos, Zahra Carroll, Myron Beckford and colleagues, with an educational kelby from [employer]. Thrive Questionnaire Date Thrive assessed: 07/21/24 I am a: Patient What is your living situation today?: I have a steady place to live Within the past 12 months, did the food you bought not last and you didn't have the money to get more?: Never true Within the past 12 months, did you worry whether your food would run out before you got money to buy more?: Never true Do you have trouble paying for medicines?: No Do you have trouble getting transportation to medical appointments?: No Do you have trouble paying your heating and electricity bill?: No Do you have trouble taking care of your child, family member or friend?: No Do you have trouble with day-to-day activities such as bathing, preparing meals, shopping, managing finances, etc.?: No Are you currently unemployed and looking for a job?: No Are you interested in more education?: No Please select the resources that you would like help with: None Currently or been in a relationship where the following occur: No concerns reported THRIVE Score: 0 KAY-7 AMB Questionnaire KAY-7 Date KAY - 7 assessed: 07/28/24 Feeling nervous, anxious, or on edge: 0 = Not at all Not being able to stop or control worryin = Not at all Worrying too much about different things: 0 = Not at all Trouble relaxin = Not at all Being so restless that it is hard to sit still: 0 = Not at all Becoming easily annoyed or irritable: 0 = Not at all Feeling afraid as if something awful might happen: 0 = Not at all Total KAY-7 score (0-4 normal; 5-9 mild; 10-14 moderate; 15-21 severe): 0 Source: Developed by Drs. Slim Recinos, Zahra Carroll, Myron Beckford and colleagues, with an educational kelby from [employer]. KAY-7 Assessment Billing KAY-7 Assessment Tool: KAY-7 Assessment 04915 Review of Systems Const All systems reviewed & are unremarkable except as noted in HPI and below Eyes Reports no additional complaints ENT Reports no additional complaints Card Reports no additional complaints Resp Reports no additional complaints GI Reports no additional complaints Physical exam (Primary Care) Vital Signs: Last Vital Signs Temp 98.3 F 01/26/25 08:51 Pulse 58 01/26/25 08:51 Resp 16 01/26/25 08:51 BP 120/60 01/26/25 08:51 Pulse Ox 97 01/26/25 08:51 Oxygen Delivery Method Room Air 01/26/25 08:51 BMI result Body Mass Index 25.6 Tobacco/Smoking Status: Tobacco use Status Tobacco use date assessed 01/26/25 01/26/25 08:56 Patient Tobacco Use Status Former Tobacco user 01/26/25 08:56 Tobacco use type Cigarette 01/26/25 08:56 e-Cigarette/Vaping Use Never Used 01/26/25 08:56 PHQ-9: PHQ-9 Score PHQ-9: Total score 0 01/26/25 09:53 Depression Screening Interpretation: Negative Thrive Assessment: Date of Thrive Assessment Date Thrive assessed 07/21/24 01/26/25 08:56 Currently or been in a relationship where the following occur: No concerns reported Const General: no acute distress Eyes General: appearance normal, both eyes and all related structures Resp Effort & Inspection: normal respiratory effort Auscultation: clear to auscultation bilaterally Cardio Rhythm: regular rhythm Heart sounds: S1 normal heart sound present and S2 normal heart sound present GI Inspection: Yes normal to inspection Palpation (GI): Soft to palpation Percussion: Yes normal to percussion Immunizations pneumoc 20-cruzito conj-dip cr(PF) 0.5 mL IM syringe Performing Provider: Pastora Sargent MD Performing Location: [facility] Administered by: Julius Rios CMA on 01/26/25 09:54 Dose Route Admin Location Dispensed Lot Number Expiration Date [facility] [employer] 0.5 mL IM Left Deltoid 0.5 mL [id number] 01/21/26 [employer] Total Dispensed Waste 0.5 mL 0 % VIS Given Date VIS Provided VIS Publication Date 01/26/25 Single Vaccine 24 Eligibility Eligibility Date Funding Source Not [facility] Eligible 01/26/25 Private Coding Level of Care Code Est Pt Level 4 (48474) Complex EM visit Add On G2211 Diagnoses Hyperthyroidism E05.90 Hearing loss H91.90 HTN (hypertension) I10 Ischemic cardiomyopathy I25.5 CAD (coronary artery disease) I25.10 Osteoporosis M81.0 Additional Codes KAY-7 Assessment Billing - KAY-7 Assessment Tool: KAY-7 Assessment 70416 ([id number]) PHQ-9 - 70371 - PHQ-9 Billing: Yes ([id number]) Assessment & Plan Assessment & Plan (1) Hyperthyroidism: Comment: f/u Dr. Singh, suppressed TSH, normal free T3 and T4 Code(s): E05.90 - Thyrotoxicosis, unspecified without thyrotoxic crisis or storm Category: Medical Plan: Monitor TSH and free T3 and free T4, no indication for treatment (2) Hearing loss: Code(s): H91.90 - Unspecified hearing loss, unspecified ear Category: Medical Plan: Referred to ENT (3) HTN (hypertension): Code(s): I10 - Essential (primary) hypertension Category: Medical Plan: Continue current medications (4) Ischemic cardiomyopathy: Comment: cardiogenic shock after NSTEMI 09/24, Echo EF 15-20%. Akinesis of apex, distal, anterioseptal, lateral and anterior davis, moderate MR, repeat ECHO nl EF 04/26, f/u Cardiology [facility] Code(s): I25.5 - Ischemic cardiomyopathy Category: Medical Plan: Continue current medications follow-up with cardiology annually (5) CAD (coronary artery disease): Comment: S/P NSTEMI LMCA STEPHANIE 09/[address] [facility] [address] Jiang Code(s): I25.10 - Atherosclerotic heart disease of [place] coronary artery without angina pectoris Category: Medical Plan: On high dose statin aspirin and beta linsey (6) Osteoporosis: Comment: dexa 01/2025. T score -2.6, Fosamax started 01/2025 Code(s): M81.0 - Age-related osteoporosis without current pathological fracture Category: Medical Plan: Start Fosamax, side effects discussed with the patient , she will continue vitamin-D and weight-bearing exercises Orders: Orders Triiodothyronine T3 Free 2 Months E05.90 - Thyrotoxicosis, unspecified without thyrotoxic crisis or storm Pneumococcal 20 Immunization Today Z23 - Encounter for immunization Comprehensive Bryan. Panel Fast 6 Months E05.90 - Thyrotoxicosis, unspecified without thyrotoxic crisis or storm, E78.5 - Hyperlipidemia, unspecified, I10 - Essential (primary) hypertension, I25.5 - Ischemic cardiomyopathy Lipid Panel 6 Months E05.90 - Thyrotoxicosis, unspecified without thyrotoxic crisis or storm, E78.5 - Hyperlipidemia, unspecified, I10 - Essential (primary) hypertension, I25.5 - Ischemic cardiomyopathy TSH reflex Free T4 6 Months E05.90 - Thyrotoxicosis, unspecified without thyrotoxic crisis or storm, E78.5 - Hyperlipidemia, unspecified, I10 - Essential (primary) hypertension, I25.5 - Ischemic cardiomyopathy TSH reflex Free T4 2 Months E05.90 - Thyrotoxicosis, unspecified without thyrotoxic crisis or storm Complete Blood Count Auto Diff 6 Months E05.90 - Thyrotoxicosis, unspecified without thyrotoxic crisis or storm, E78.5 - Hyperlipidemia, unspecified, I10 - Essential (primary) hypertension, I25.5 - Ischemic cardiomyopathy Triiodothyronine T3 Free 6 Months E05.90 - Thyrotoxicosis, unspecified without thyrotoxic crisis or storm, E78.5 - Hyperlipidemia, unspecified, I10 - Essential (primary) hypertension, I25.5 - Ischemic cardiomyopathy Referrals Ear/Nose/Throat Referral H91.90 - Unspecified hearing loss, unspecified ear Medications: New alendronate (Fosamax) 70 mg PO QWEEK 14 tabs 3RF
[2025-01-26 08:51] VITALS: BP 120/60; PULSE 58; RESP 16; TEMP 36.8; O2SAT 97; BMI 25.6
--- OUTSIDE RECORDS SUMMARY | 2025-01-26 09:02 | XMS_ITS | Clinical Summary ---
Author Organization [facility] Address [address] [place] [address] Phone Care Team Providers Care Taxation Inspector Name Role Phone Pastora Sargent MD Primary Care Provider [phone] Encounters Date Type Department Care Team Description 11/10/2024 7:07 AM EDT - 11/10/2024 11:59 PM EDT [facility] [address] [address] Encounter for screening mammogram for [...] for biopsy. PQRI CPT II 3341F Code 53917, 81857 PQRI 225 CPT II 7025F TISSUE DENSITY: There are scattered areas of fibroglandular density. (BI-RADS category B) IMPRESSION: Benign. BI-RADS CATEGORY: 1 - NEGATIVE RECOMMENDATION: Screening bilateral mammogram is recommended in 1 year. Mammo Location: [facility], [address] [place] [address] -------- FINAL REPORT -------- Dictated By: Jordi Osman Dictated Date: 11/10/2024 07:39 ET Assigned Physician: Jordi Osman Reviewed and Electronically Signed By: Jordi Osman Signed Date: 11/10/2024 07:42 ET Workstation ID: [id number] Transcribed By: Self Edit Transcribed Date: 11/10/2024 07:39 ET Narrative 11/10/2024 7:42 AM EDT CLINICAL: The patient is a 74 years Female presenting for routine screening mammography. COMPARISON: Most recently 11/09/2023 and most remotely 08/12/2017. TECHNIQUE: Full-field digital mammography of the breasts bilaterally consisting of tomosynthesis in MLO and CC projection is performed in the SOAK ([employer]) 2000-D unit. Computer aided detection utilizing the [...] MLO and CC projection is performed in the[employer]amigo[employer] 2000-D unit. Computer aided detection utilizing the [...] for biopsy. PQRI CPT II 3341F Code 98671, 11231 PQRI 225 CPT II 7025F TISSUE DENSITY: There are scattered areas of fibroglandular density.(BI-RADS category B) IMPRESSION: Benign. BI-RADS CATEGORY: 1 - NEGATIVE RECOMMENDATION: Screening bilateral mammogram is recommended in 1 year. Mammo Location: [facility], [facility], [address] [place] [address] -------- FINAL REPORT -------- Dictated By: Jordi Osman Dictated Date: 11/10/2024 07:39 ET Assigned Physician: Jordi Osman Reviewed and Electronically Signed By: Jordi Osman Signed Date: 11/10/2024 07:42 ET Workstation ID: [id number] Transcribed By: Self Edit Transcribed Date: 11/10/2024 07:39 ET us Self Referral Sppl IMG BI PROCEDURES Final Resul t from Last 3 Months Insurance [employer] [facility] [employer] Member Subscriber Plan / Payer (Ef fective 2024-Present) Name:Bel Leo Relation to Subscriber:Self Name:Bel Leo Payer ID:[id number] Group ID:Not on file Type:Not on file Address: [address] [place] [id number] Care Teams Taxation Inspector Relationship Specialty Start Date End Date Pastora Sargent MD [address] [place] [address] PCP - General Internal Medicine 11/10/24
--- OUTSIDE RECORDS SUMMARY | 2025-01-26 09:02 | XMS_ITS | Clinical Summary ---
Author Organization [facility] Address [address] [place] [address] Care Team Providers Care Carbon Electrodes Supervisor Name Role Phone Hema Roach MD Primary Care Provider [phone] Medications Medication Sig Dispensed Refills Start Date [...] of Treatment Not on file Care Teams Carbon Electrodes Supervisor Relationship Specialty Start Date End Date Hema Roach MD [address] [place] [address] PCP - General Family Medicine 08/26/16
== END 2025-01-26 09:44 | disposition home or self-care (01) ==
LOC: HO.HMCC 08:48
PROVIDERS: PCP Internal Medicine; Visit Provider Internal Medicine
DX: E05.90 Thyrotoxicosis, unspecified without thyrotoxic crisis or storm (principal); H91.90 Unspecified hearing loss, unspecified ear; I10 Essential (primary) hypertension; I25.5 Ischemic cardiomyopathy; I25.10 Atherosclerotic heart disease of native coronary artery without angina pectoris; M81.0 Age-related osteoporosis without current pathological fracture; Z23 Encounter for immunization

== ENCOUNTER → 2025-01-26 08:47 | Outpatient (BNVA) | payer OTHER, SELFPAY ==
[2023-03-03 07:13] VITALS: BP 100/54; BP 126/54; BP 94/66; BMI 25.7
== END ==
PROVIDERS: PCP Internal Medicine; Visit Provider Internal Medicine
DX: I10 Essential (primary) hypertension (principal); E78.5 Hyperlipidemia, unspecified; I50.9 Heart failure, unspecified; E05.90 Thyrotoxicosis, unspecified without thyrotoxic crisis or storm; H91.90 Unspecified hearing loss, unspecified ear; I25.5 Ischemic cardiomyopathy; I25.10 Atherosclerotic heart disease of native coronary artery without angina pectoris; M81.0 Age-related osteoporosis without current pathological fracture; Z23 Encounter for immunization
CPT/HCPCS: 90471; 90677; 96127; 99212